=== PATIENT | male | born 1970 | race Caucasian/White ===

== ENCOUNTER 2017-09-16 05:59 | Inpatient (IN) | payer MEDICAID ==
[2017-09-16] VITALS (21 sets, daily range): BP systolic 102–149; BP diastolic 63–98; PULSE 80–104; RESP 16–76; TEMP 98.3–98.5; O2SAT 96–100
[~2017-09-16] VITALS: Ht 177.8 cm; Wt 54.0 kg
[2017-09-16] MEDS ORDERED: PIPERACIL-TAZO 3.375 GM PREMIX 50 ML IV ONE (06:15)
[2017-09-16] MEDS ORDERED: PROPOFOL 1000 MG/100 ML INJ 100 ML IV PRN (06:15)
[2017-09-16] MEDS ORDERED: VANCOMYCIN INJ 1,000 MG in SODIUM CHLOR 0.9% 250 ML INJ 250 ML IV ONE (06:15)
[2017-09-16] MEDS ORDERED: LIDOCAINE HCL 1% PF 30 ML VIAL ONE (06:22)
[2017-09-16] MEDS ORDERED: GABA300C5 PO (06:24)
[2017-09-16] MEDS ORDERED: DILT60TA PO (06:24)
[2017-09-16] MEDS ORDERED: LABE200T2 PO (06:24)
--- NOTE | 2017-09-16 06:45 | RADRPT ---
EXAM DATE/TIME: 09/16/2017 06:17 [facility] COMPARISON: No previous studies available for comparison. INDICATIONS : Post intubation. Patient in respiratory distress. MEDICAL HISTORY : None. SURGICAL HISTORY : Left lobectomy. ENCOUNTER: Initial ACUITY: 1 day PAIN SCORE: Non-responsive. LOCATION: Bilateral chest FINDINGS: A single AP semierect view of the chest was obtained and demonstrates the patient is status post left thoracotomy and lobectomy with volume loss and mediastinal shift to the left. There is patchy opacit y in the left lung which may represent scarring. An endotracheal tube is present with the tip approxi mately 4 cm above the bl[place]. There is mild elevation left hemidiaphragm with blunting of the costoph renic angle chronic. The right lung is hyperinflated with apparent large bleb in the upper lung and atelectatic lung in th e lung base. There is no pleural reflection identified. The heart size is at the upper limits of norm al. CONCLUSION: 1. Hyperinflated right lung with apparent large bleb in the upper lobe. There is no visualized pneumo thorax. 2. Postsurgical change of the left status post lobectomy with volume loss and mediastinal shift. 3. Patchy opacity in the left lung which may represent scarring. Gustavo Álvarez MD on September 16, 2017 at 6:40 Board Certified Radiologist. This report was verified electronically.
[2017-09-16 07:05] LABS: BLOOD, URINE NEG (NEG); COMMENT (UR) CULT NOT INDICATED; CULTURE IF INDICATED CULT NOT INDICATED; GLUCOSE,URINE NEG (NEG); HYALINE CAST, URINE 7 /lpf (RARE); KETONE, URINE NEG (NEG); MUCUS URINE FEW /lpf (OCC); NITRITE,URINE NEG (NEG); SQUAMOUS EPITHELIAL CELL URINE <1 /hpf (0-5); URINE COLOR YELLOW (YELLW/STRAW)
[2017-09-16 07:07] LABS: BLOOD GAS BASE EXCESS 12.2 mmol/L (-2-2); BLOOD GAS CARBOXYHEMOGLOBIN 7.5 % (0-4); BLOOD GAS HCO3 38 mmol/L (22-26); BLOOD GAS METHEMOGLOBIN 0.4 % (0-2); BLOOD GAS O2 HGB SATURATION 92 % (90-100); BLOOD GAS OXYGEN CONTENT 14.7 Vol % (12.0-20.0); BLOOD GAS PCO2 73 mmHg (38-42); BLOOD GAS PO2 407 mmHG (61-120); BLOOD GAS TOTAL HGB 10.6 G/DL (12.0-16.0); CRITICAL VALUE YES
[2017-09-16 07:08] LABS: DRAW SITE RT RADIAL; FIO2 100 %; NUMBER OF ARTERIAL PUNCTURES 2; OXYGEN DEVICE VENTILATOR; STAT YES; ULNAR PULSE PRESENT; VENT SETTINGS AC/16/450/PEEP5
[2017-09-16] MEDS ORDERED: CYCL10TA PO ×2 (07:08→08:32)
[2017-09-16] MEDS ORDERED: CARB25TA9 PO (07:08)
[2017-09-16] MEDS ORDERED: XANA1TAB2 PO (07:08)
[2017-09-16] MEDS ORDERED: HYDR-3580 PO (07:08)
[2017-09-16] MEDS ORDERED: TAMS0.4C4 PO (07:08)
[2017-09-16] MEDS ORDERED: OXYC30TA62 PO (07:08)
[2017-09-16] MEDS ORDERED: ACET10SO3 NEB (07:08)
[2017-09-16] MEDS ORDERED: XIFA550T4 PO (07:08)
[2017-09-16] MEDS ORDERED: RAPA8CAP PO (07:08)
[2017-09-16] MEDS ORDERED: VENTAER INH (07:09)
[2017-09-16] MEDS ORDERED: UMEC1INH INH (07:09)
[2017-09-16] MEDS ORDERED: ADVA230A INH (07:09)
[2017-09-16] MEDS ORDERED: IPRA0.02 NEB (07:11)
[2017-09-16] MEDS ORDERED: ALBU.5I NEB (07:11)
[2017-09-16 07:15] LABS: AUTOMATED NEUTROPHIL # 4.9 TH/MM3 (1.8-7.7); BASOPHIL # 0.2 TH/MM3 (0-0.2); BASOPHIL % 2.9 % (0.0-2.0); EOSINOPHIL # 0.3 TH/MM3 (0-0.4); EOSINOPHIL % 3.4 % (0.0-4.0); HEMO FLAGS DIFF FINAL; LYMPH % 18.1 % (9.0-44.0); LYMPHOCYTE # 1.3 TH/MM3 (1.0-4.8); MEAN CELL VOLUME 87.9 FL (80.0-100.0); MEAN CORPUSCULAR HEMOGLOBIN 27.7 PG (27.0-34.0); MEAN CORPUSCULAR HGB CONC 31.6 % (32.0-36.0); MONO % 8.8 % (0.0-8.0); NEUT % 66.8 % (16.0-70.0); PLATELET COUNT 472 TH/MM3 (150-450); WHITE BLOOD COUNT 7.3 TH/MM3 (4.0-11.0)
[2017-09-16 07:19] LABS: ACETAMINOPHEN LESS THAN 2.0 MCG/ML (10.0-30.0); ALT (GPT) LESS THAN 6 U/L (12-78); AST (GOT) 16 U/L (15-37)
[2017-09-16 07:22] LABS: ALKALINE PHOSPHATASE 67 U/L (45-117); INDIRECT BILIRUBIN 0.1 MG/DL (0.0-0.8); TOTAL BILIRUBIN ADULT 0.2 MG/DL (0.2-1.0)
[2017-09-16 07:52] LABS: ALCOHOL LESS THAN 3 MG/DL (0-5); CREATINE KINASE 79 U/L (39-308)
[2017-09-16] MEDS ORDERED: BACT400T PO (08:32)
[2017-09-16 08:58] LABS: BLOOD UREA NITROGEN 6 MG/DL (7-18); CHLORIDE 95 MEQ/L (98-107); GLOMERULAR FILTRATION RATE 208 ML/MIN (>89); SODIUM (NA) 137 MEQ/L (136-145)
[2017-09-16 08:59] LABS: ANION GAP 6 MEQ/L (5-15); BICARBONATE 36.3 MEQ/L (21.0-32.0)
[2017-09-16] MEDS ORDERED: MISCELLANEOUS NURSING INFORMATION XX SCH (09:30)
[2017-09-16] MEDS ORDERED: ENOXAPARIN SODIUM 40 MG/0.4 ML SYRINGE SQ SCH (09:30)
[2017-09-16] MEDS ORDERED: ACETAMINOPHEN 325 MG TAB PO PRN (09:30)
[2017-09-16] MEDS ORDERED: CHLORHEXIDINE GLUCONATE 2 % 1 PACK (2 CLOTHS) TOP PRN (09:30)
[2017-09-16] MEDS ORDERED: SODIUM CHLORIDE 0.9% FLUSH 10 ML FLUSH IV FLUSH PRN (09:30)
[2017-09-16] MEDS ORDERED: RESP: ALBUTEROL 2.5 MG/3 ML NEB (PRN) INH (09:30)
--- NOTE | 2017-09-16 10:40 | HHI.HP ---
[facility] Service Critical Care Medicine Primary Care Physician Non-Staff Admission Diagnosis resp failure Diagnosis: Chief Complaint: Altered mental status, shortness of breath Travel History International Travel<30 Days: No Contact w/Intl Traveler <30 Da: No Traveled to Known Affected Are: No History of Present Illness 47-year-old male with a medical history significant for advanced COPD on home oxygen 2 L/m, Aspergillus lung infection for which at this time he was on mechanical ventilation and underwent a tracheostomy was seen by he had a left lower lobe lobectomy in 2012 at [facility], recent admission in April [address] [facility] at which time he was on mechanical ventilation underwent tracheostomy and was subsequently discharged on Bactrim by ID. He has followed up with pulmonary physician and had his tracheostomy decannulated 2 weeks ago and saw the infectious disease physician Dr. 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 He has been taking more than his usual dose of Flexeril and is also on chronic narcotics. Patient developed worsening delirium and confusion over the last 1 week which the patient's fianc attributes to taking excessive Flexeril. 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 Patient was brought in today with worsening mental status and shortness of breath. He has also been having some chills for the last 1 week off and on. He was noted be hypoxic on arrival in the ER with significant respiratory distress and was intubated emergently and placed on mechanical ventilation by ER physician. Critical care medicine was contacted and accepted patient for admission to the ICU. When I evaluated the patient in the ER he was sedated, orally intubated on mechanical ventilation. History was obtained by discussion with patient's fianc at the bedside. 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 Advanced COPD on home oxygen 2 L/m for a few years BPH Chronic pain Past Surgical History Bilateral hernia repair, left lower lobe lobectomy for Aspergillus infection in 2012, bowel obstruction/diverticulitis in 2015 for which he underwent surgery Tracheostomy and PEG tube placement in April 2017 both of which have been removed. Reported Medications Bactrim 400/80 one tablet by mouth twice a day Rifaximin 550 mg SQ every 12 hourly Ipratropium nebulizer treatment every 6 hourly Incruse Ellipta inhaler daily Albuterol HFA 2 puffs every 4-6 hourly when necessary Albuterol nebulizer treatments every 6 hourly Silodosin cap 8mg daily Tamsulosin 0.4 mg By mouth daily at bedtime Flexeril 15 mg by mouth 3 times a day, 10 mg by mouth twice a day Labetalol 200 mg by mouth twice a day Diltiazem 60 mg by mouth 4 times a day Hydrocodone/acetaminophen 7.5/325 mg by mouth every 4 hourly when necessary OxyContin 30 mg by mouth every 12 hourly Gabapentin 300 mg by mouth twice a day Xanax 1 mg by mouth every 12 hourly when necessary anxiety Carbidopa/levodopa 25/100 mg by mouth every 8 hourly Advair HFA inhaled twice a day Mucomyst nebulizer treatment 4 times a day Family History Noncontributory at this time Physical Exam Vital Signs Vital Signs Date Time Temp Pulse Resp B/P (MAP) Pulse Ox O2 Delivery O2 Flow Rate FiO2 09/16/17 09:00 97 16 119/78 (92) 100 Auto-Vent 09/16/17 08:30 93 16 115/75 (88) 100 Auto-Vent 09/16/17 08:12 40 09/16/17 08:00 88 16 140/87 (104) 100 Auto-Vent 09/16/17 07:30 92 16 112/75 (87) 100 Auto-Vent 09/16/17 07:00 100 40 09/16/17 07:00 90 16 110/75 (87) 100 Auto-Vent 09/16/17 06:15 100 09/16/17 06:06 96 16 149/98 (115) 100 Ventilator 100 09/16/17 06:06 100 Ventilator 09/16/17 06:00 100 100 09/16/17 05:55 100 15.00 100 Physical Exam HEENT/ Neuro: Sedated, orally intubated, pupils bilaterally constricted reacting to light, Pallor present, no icterus, tongue/ mucosa moist Neck: No JVD. Dressing over previous tracheostomy site noted Chest/Pulm: on mech vent, decreased air entry over left lower lung field, scattered rhonchi, no wheezing or crackles CVS: S1-S2 regular, no murmur GI/abdomen: soft, nontender, bowel sounds sluggish. Healed surgical incision scar, Incisional hernia over midline noted. : penile erection Extremities: warm bilaterally, no edema Laboratory Laboratory Tests Test 09/16/17 06:30 09/16/17 06:45 09/16/17 06:53 Urine Color YELLOW Urine Turbidity CLEAR Urine pH 6.0 Urine Specific [place] 1.009 Urine Protein NEG Urine Glucose (UA) NEG Urine Ketones NEG Urine Occult Blood NEG Urine Nitrite NEG Urine Bilirubin NEG Urine Urobilinogen LESS THAN 2.0 Urine Leukocyte Esterase NEG Urine RBC 1 Urine WBC 1 Urine Squamous Epithelial Cells <1 Urine Hyaline Casts 7 Urine Mucus FEW Microscopic Urinalysis Comment CULT NOT INDICATED Blood Urea Nitrogen 6 Creatinine 0.44 Random Glucose 108 Total Protein 6.4 Albumin 3.4 Calcium Level 8.6 Alkaline Phosphatase 67 Aspartate Amino Transf (AST/SGOT) 16 Alanine Aminotransferase (ALT/SGPT) LESS THAN 6 Total Bilirubin 0.2 Direct Bilirubin 0.1 Sodium Level 137 Potassium Level 4.0 Chloride Level 95 Carbon Dioxide Level 36.3 Anion Gap 6 Estimat Glomerular Filtration Rate 208 Indirect Bilirubin 0.1 Total Creatine Kinase 79 Troponin I LESS THAN 0.02 Lipase 46 Salicylates Level 7.3 Urine Opiates Screen NEG Acetaminophen Level LESS THAN 2.0 Urine Barbiturates Screen NEG Urine Amphetamines Screen NEG Urine Benzodiazepines Screen NEG Urine Cocaine Screen NEG Urine Cannabinoids Screen NEG Ethyl Alcohol Level LESS THAN 3 White Blood Count 7.3 Red Blood Count 4.20 Hemoglobin 11.7 Hematocrit 37.0 Mean Corpuscular Volume 87.9 Mean Corpuscular Hemoglobin 27.7 Mean Corpuscular Hemoglobin Concent 31.6 Red Cell Distribution Width 19.0 Platelet Count 472 Mean Platelet Volume 6.5 Neutrophils (%) (Auto) 66.8 Lymphocytes (%) (Auto) 18.1 Monocytes (%) (Auto) 8.8 Eosinophils (%) (Auto) 3.4 Basophils (%) (Auto) 2.9 Neutrophils # (Auto) 4.9 Lymphocytes # (Auto) 1.3 Monocytes # (Auto) 0.6 Eosinophils # (Auto) 0.3 Basophils # (Auto) 0.2 CBC Comment DIFF FINAL Differential Comment Blood Gas Puncture Site RT RADIAL Blood Gas Patient Temperature 37.0 Blood Gas HCO3 38 Blood Gas Base Excess 12.2 Blood Gas Oxygen Saturation 92 Arterial Blood pH 7.34 Arterial Blood Partial Pressure CO2 73 Arterial Blood Partial Pressure O2 407 Arterial Blood Oxygen Content 14.7 Arterial Blood Carboxyhemoglobin 7.5 Arterial Blood Methemoglobin 0.4 Blood Gas Hemoglobin 10.6 Oxygen Delivery Device VENTILATOR Blood Gas Ventilator Setting AC/16/450/PEEP5 Blood Gas Inspired Oxygen 100 Date/Time Source Procedure Growth Status 09/16/17 06:30 Blood Peripheral Aerobic Blood Culture Pending Received 09/16/17 06:30 Blood Peripheral Anaerobic Blood Culture Pending Received 09/16/17 06:30 Urine Clean Catch Urine Culture Pending Received Result Diagram: 09/16/1745 09/16/17629 Septic Shock Reassessment Heart: Regular rate and rhythm Lungs: Course Skin: Moist Peripheral Pulses: Bounding Right Radial Capillary Refill: Brisk Caprini VTE Risk Assessment Caprini VTE Risk Assessment: Mod/High Risk (score >= 2) Caprini Risk Assessment Model Point Value = 1 Point Value = 2 Point Value = 3 Point Value = 5 Age 41-60 Minor surgery BMI > 25 kg/m2 Swollen legs Varicose veins or History of unexplained or recurrent spontaneous Oral contraceptives or hormone replacement Sepsis (< 1 month) Serious lung disease, including pneumonia (< 1 month) Abnormal pulmonary function Acute myocardial infarction Congestive heart failure (< 1 month) History of inflammatory bowel disease Medical patient at bed rest Age 61-74 Arthroscopic surgery Major open surgery (> 45 min) Laparoscopic surgery (> 45 min) Malignancy Confined to bed (> 72 hours) Immobilizing plaster cast Central venous access Age >= 75 History of VTE Family history of VTE Factor V Leiden Prothrombin [id number] Lupus anticoagulant Anticardiolipin antibodies Elevated serum homocysteine Heparin-induced thrombocytopenia Other congenital or acquired thrombophilia Stroke (< 1 month) Elective arthroplasty Hip, pelvis, or leg fracture Acute spinal cord injury (< 1 month) Prophylaxis Regimen Total Risk Factor Score Risk Level Prophylaxis Regimen 0-1 Low Early ambulation 2 Moderate Order ONE of the following: *Sequential Compression Device (SCD) *Heparin 5000 units SQ BID 3-4 Higher Order ONE of the following medications: *Heparin 5000 units SQ TID *Enoxaparin/Lovenox 40 mg SQ daily (WT < 150 kg, CrCl > 30 mL/min) *Enoxaparin/Lovenox 30 mg SQ daily (WT < 150 kg, CrCl > 10-29 mL/min) *Enoxaparin/Lovenox 30 mg SQ BID (WT < 150 kg, CrCl > 30 mL/min) AND/OR *Sequential Compression Device (SCD) 5 or more Highest Order ONE of the following medications: *Heparin 5000 units SQ TID (Preferred with Epidurals) *Enoxaparin/Lovenox 40 mg SQ daily (WT < 150 kg, CrCl > 30 mL/min) *Enoxaparin/Lovenox 30 mg SQ daily (WT < 150 kg, CrCl > 10-29 mL/min) *Enoxaparin/Lovenox 30 mg SQ BID (WT < 150 kg, CrCl > 30 mL/min) AND *Sequential Compression Device (SCD) Assessment and Plan Assessment and Plan 47-year-old male with: Encephalopathy possibly secondary to narcotics/Flexeril Acute and chronic respiratory failure on mechanical ventilation Advanced COPD with COPD exacerbation Possible pneumonia Possible sepsis Recent nocardia pneumonia Chronic pain History of hypertension Plan: Neuro: Sedation with propofol. Continue oxycodone via OG tube to prevent opioid withdrawal. Hold Flexeril at this time. Follow neuro checks. Ordered stat head CT to rule out ICH. Cardiovascular: IV hydration, watch for hypotension. Will hold off on oral antihypertensives at this time. Labetalol prn. Pulmonary: Continue mechanical ventilation, vent bundle, bronchodilators. Follow up CT chest pulmonary angiogram to evaluate for PE and to further evaluate pulmonary parenchyma. Pulmonary consult requested in view of recent history of no cardiac pneumonia and advanced COPD with previous resection of left lower lobe. Sputum ordered for Gram stain and cultures while in the ER. GI/liver: Insert OG tube and start tube feeds with Glucerna and advanced to goal as tolerated. Laxatives for constipation which is most likely secondary to his chronic narcotic use Renal/: IV hydration, strict intake output, monitor and replete electrolytes, follow BUN creatinine. If patient continues to have persistent penile erection will obtain urology consult for further evaluation. ID: Empiric Linezolid/Zosyn/Zithromax IV to cover for HCAP ID consult requested in view of history of recent nocardia pneumonia. Continue Bactrim twice a day from outpatient. Endocrine: SSI for glycemic control as needed. Heme: Follow CBC Prophylaxis: Pepcid/SCDs/Lovenox Discussed with patient's aliciaanc in detail regarding current clinical status and plan of care and she voiced understanding and was agreeable. Condition critical with acute on chronic respiratory failure, COPD exacerbation , encephalopathy, chronic narcotic dependence Time spent on critical care excluding procedures 90 minutes Kirk Ybarra MD Sep 16, 2017 10:40
[2017-09-16] MEDS: ENOXAPARIN SODIUM 40 MG/0.4 ML SYRINGE SQ SCH ×2 (11:00→11:54)
[2017-09-16] MEDS ORDERED: GLUCAGON 1 MG/ML VIAL OTHER PRN (11:00)
[2017-09-16] MEDS ORDERED: DEXTROSE 50% IN WATER 50 ML VIAL(D50) IV PUSH PRN (11:00)
[2017-09-16] MEDS ORDERED: IOHEXOL 350 MG/ML 10 ML VIAL (for RAD DIAG) IVCONTRAST ONE (11:16)
--- NOTE | 2017-09-16 11:30 | RADRPT ---
EXAM DATE/TIME: 09/16/2017 11:06 [facility] COMPARISON: CHEST SINGLE AP, September 16, 2017, 6:17. INDICATIONS : Hypoxia. IV CONTRAST: 69 cc Omnipaque 350 (iohexol) IV RADIATION DOSE: 23.56 CTDIvol (mGy) MEDICAL HISTORY : Chronic obstructive pulmonary disease. Aspergillus lung infection SURGICAL HISTORY : Tracheostomy, Left lobectomy ENCOUNTER: Initial ACUITY: 1 day PAIN SCALE: Non-responsive LOCATION: chest TECHNIQUE: Volumetric scanning of the chest was performed using a pulmonary embolism protocol MIP images were re constructed. Using automated exposure control and adjustment of the mA and/or kV according to patien t size, radiation dose was kept as low as reasonably achievable to obtain optimal diagnostic quality images. DICOM format image data is available electronically for review and comparison. Follow-up recommendations for detected pulmonary nodules are based at a minimum on nodule size and pa tient risk factors according to Fleischner Society Guidelines. FINDINGS: PULMONARY ARTERIES: No filling defects are seen in the pulmonary arteries through the segmental level. LUNGS: Patient is intubated with ETT in good position. Postsurgical features of prior left upper lobectomy w ith prominent bullous change in the right apex and diffuse centrilobular emphysema. Patchy airspace d isease in the superior segment of the left lower lobe and. Peripheral subpleural nodule measuring 8 m m in the right lower lobe superior segment. Platelike nodular opacity measuring up to 9 mm in the rig ht upper lobe. PLEURAE: Pleural thickening in the right superior hemithorax. No significant pleural effusion. MEDIASTINUM: Significant mediastinal shift to the left. No significant mediastinal adenopathy. The heart is unrema rkable without significant pericardial effusion. MUSCULOSKELETAL: Within normal limits for patient age. MISCELLANEOUS: The visualized upper abdominal organs demonstrate no acute abnormality. CONCLUSION: 1. No evidence for pulmonary artery embolism to the proximal subsegmental level. 2. Postsurgical features of left upper lobectomy with extensive right apical bullous emphysema and di ffuse bilateral centrilobular emphysema. 3. Patchy airspace disease in the superior segment of the left lower lobe which may be post treatment change although developing pneumonia or less likely aspiration cannot be excluded. 4. 8mm right lower lobe subpleural and 9 mm right upper lobe platelike nodules. Consider followup exa mination in approximately 3-6 months per 2017 Fleischner criteria. Maxim Schreiber MD on September 16, 2017 at 11:16 Board Certified Radiologist. This report was verified electronically.
[2017-09-16] MEDS: INSULIN ASPART SUPPLEMENTAL SCALE SQ SCH ×2 (11:54→17:07)
[2017-09-16] MEDS: PROPOFOL 1000 MG/100 ML INJ 100 ML IV PRN ×2 (11:57→19:46)
[2017-09-16] MEDS ORDERED: RESP: ALBUTEROL CONC 2.5 MG/0.5 ML NEB NEB SCH (12:45)
[2017-09-16] MEDS: PIPERACIL-TAZO 4.5 GM PREMIX 100 ML IV SCH ×2 (13:48→17:07)
[2017-09-16] MEDS: AZITHROMYCIN INJ 500 MG in SODIUM CHLOR 0.9% 250 ML INJ 250 ML IV SCH (13:48)
[2017-09-16] MEDS: methylPREDNISolone SOD SUCC 40 MG/1 ML VIAL IV PUSH SCH ×2 (13:59→21:28)
[2017-09-16 14:10] LABS: PROTHROMBIN TIME - PATIENT 10.2 SEC (9.8-11.6)
--- NOTE | 2017-09-16 15:52 | EKG ---
Date Performed: 09/16/2017 Time Performed: 06:05:45 PTAGE: 47 years EKG: Sinus rhythm INCOMPLETE RIGHT BUNDLE BRANCH BLOCK VOLTAGE CRITERIA FOR LVH ABNORMAL ECG NO PREVIOUS TRACING DOCTOR: Jose Alegria Interpretating Date/Time 09/16/2017 15:51:32
--- NOTE | 2017-09-16 16:00 | MB ---
cc: OLYA MILLS MD DATE OF CONSULTATION: 09/16/[address] Kirk Ybarra. REASON FOR CONSULTATION Recent Nocardia pneumonia. History of lobectomy. Respiratory failure. HISTORY OF PRESENT ILLNESS This is a 47-year-old white male who presented to the emergency department with shortness of breath and was intubated. The patient is currently intubated and on the ventilator and therefore information is obtained from the medical record. The patient was hypoxic when he arrived in the emergency department. He is known to have a history of Nocardia pneumonia and was being treated with Bactrim. He was followed up with an infectious disease physician in [place], [place] and reportedly was on maintenance dose of the Bactrim following in hospital treatment for the acute phase. The patient has undergone tracheostomy. The patient has a history of lobectomy of the left lower lobe for Aspergillus lung infection in 2012. This consultation is requested for infection management. Since the patient is on the ventilator information is obtained from the medical record. Medical records as being requested from [facility]. These are not yet available. He is on the ventilator on 40% FIO2 and is unresponsive. PAST MEDICAL HISTORY 1. COPD. 2. Aspergillus pneumonia. 3. Nocardia pneumonia. 4. Benign prostatic hypertrophy. ALLERGIES NO KNOWN DRUG ALLERGIES. MEDICATIONS 1. Azithromycin. 2. Linezolid. 3. Pepcid. 4. Piperacillin/tazobactam. 5. Insulin. 6. Lovenox. SOCIAL HISTORY Unable to obtain. FAMILY HISTORY Unable to obtain. REVIEW OF SYSTEMS Unable to obtain. PHYSICAL EXAMINATION GENERAL: This is a slender male who is in no acute distress. VITAL SIGNS: The patient is afebrile. Temperature 98.8. BP 129/58, heart rate 100. HEENT: Head is atraumatic. Extraocular movements cannot be assessed. Oropharynx intubated. NECK: No adenopathy or swelling. LUNGS: Decreased breath sounds on the right. HEART: Regular, S1-S2. 2/6 systolic murmur. ABDOMEN: Bowel sounds present, soft, no tenderness appreciated. The patient has a large ventral abdominal hernia. RECTAL: Not performed. EXTREMITIES: No clubbing, cyanosis or edema. SKIN: No rash. NEURO: Unable to assess. PSYCHE: Unable to assess. LABORATORY DATA WBC 7.3, platelets 472, hemoglobin 11.7, 66% neutrophils, 18% lymphocytes, 8% monocytes, creatinine 41, estimated GFR 208, sodium 137. AST 16, ALT 6. Lung culture pending. Blood culture pending. Urine culture pending. IMAGING STUDIES Chest x-ray shows hyperinflated right lung with apparent large bleb in the upper lobe, volume loss at the left, also patchy opacity in the left lung which may represent scarring. CT angiogram of the chest showed patchy airspace disease in the superior segment of the left lower lobe which may be posttreatment change. Developing pneumonia or less likely aspiration cannot be excluded, also 8 mm right lower lobe subpleural and 9 mm right upper lobe plate-like nodules. IMPRESSION 1. Acute respiratory failure. 2. Probable pneumonia. The patient has history of Nocardia pulmonary infection which is recently treated and has been continued to be managed with Bactrim. 3. COPD. RECOMMENDATIONS 1. Continue the current broad-spectrum antibiotic treatment with linezolid, piperacillin/tazobactam and azithromycin. 2. Monitor sputum culture. 3. Monitor blood culture. 4. Follow the patient's temperature. Obtain further information on the patient's prior treatment for infection and consider putting him back on maintenance Bactrim. He is due to undergo bronchoscopy and additional cultures should be taken and monitored if that procedure is performed. It is typical to continue treatment for Nocardia pneumonia for a total of 6 months in immunocompetent patient. Thank you for this consultation. The patient's progress will be monitored and further recommendations will be given on followup if necessary. Olya Mills MD FD/JENNIFER /1:43 PM /3:09 PM
[2017-09-16] MEDS: RESP: ALBUTEROL 2.5 MG/IPRATROPIUM 0.5 MG NEB (PRN) INH (16:32)
[2017-09-16] MEDS: RESP: ACETYLCYSTEINE 10% 30 ML NEB NEB SCH (16:33)
[2017-09-16] MEDS: fentaNYL DRIP 250 ML IV PRN (19:46)
--- NOTE | 2017-09-16 20:15 | PD ---
HPI Chief Complaint: Respiratory Distress Time Seen by Provider: 06:06 Travel History International Travel<30 days: No Contact w/Intl Traveler<30days: No Traveled to known affect area: No History of Present Illness HPI Patient is a 47-year-old male with a medical history significant for advanced COPD on home oxygen . 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 He has followed up with pulmonary physician and had his tracheostomy decannulated 2 weeks ago and saw the infectious disease physician Dr. Bloom about a week back. He was continuing his Bactrim twice a day for prevention per patient's fianc. He has been taking more than his usual dose of Flexeril and is also on chronic narcotics. Patient developed worsening delirium and confusion over the last 1 week which the patient's fianc attributes to taking excessive Flexeril. Pt was not taking the pain pill for 1 week as per pts partner. 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 At scene the Intubated pt and gave Ativan $ mg and Etomidate @0mg for sedation. pt arrives vitals stable and intubated. NO ROS or HPI available from pt . sedated intubated [facility] Past Medical History Medical History: Unable to Obtain Arthritis: No Cardiovascular Problems: Yes Cerebrovascular Accident: No Musculoskeletal: No Neurologic: No Respiratory: Yes Migraines: No Seizures: Yes Past Surgical History Surgical History: Unable to Obtain Abdominal Surgery: Yes Cardiac Surgery: No Ear Surgery: No Endocrine Surgery: No Eye Surgery: No Genitourinary Surgery: No Gynecologic Surgery: No Oral Surgery: No Thoracic Surgery: Yes Social History Tobacco Use: Yes Allergies-Medications (Allergen,Severity, Reaction): Coded Allergies: No Known Allergies (Verified Allergy, Unknown, 09/16/17) Reported Meds & Prescriptions Reported Meds & Active Scripts Active Reported Flexeril (Cyclobenzaprine HCl) 10 Mg Tab 15 Mg PO TID Bactrim (Sulfamethoxazole-Trimethoprim) 400-80 Mg Tab 1 Tab PO BID Albuterol Neb (Albuterol Sulfate) 2.5 Mg/0.5 Ml Neb 2.5 Mg NEB Q6HR NEB Note: The Albuterol Sulfate Inhalation Solution is concentrated and must be diluted. Read complete instructions carefully before using. Ipratropium Neb (Ipratropium [place]) 0.5 Mg/2.5 Ml Amp 0.5 Mg NEB Q6HR NEB Ventolin Hfa 18 GM Inh (Albuterol Sulfate) 90 Mcg/Act Aer 2 Puff INH Q4-6H PRN Incruse Ellipta Inh (Umeclidinium [place] Inh) 0.0625 Mg/Act Inh 62.5 Mcg INH DAILY Advair Hfa 12 GM Inh (Fluticasone-Salmeterol 12 GM Inh) 230-21 Mcg/Act Aer 2 Puff INH BID Acetylcysteine Liq/Neb (Acetylcysteine) 100 mg/ml Soln 2 Ml NEB QID Hydrocodone-Acetaminophen 7.5 Mg-325 Mg Tab 1 Tab PO Q4H PRN Oxycontin (Oxycodone HCl) 30 Mg Tab 30 Mg PO Q12HR Flexeril (Cyclobenzaprine HCl) 10 Mg Tab 10 Mg PO BID Xanax (Alprazolam) 1 Mg Tab 1 Mg PO Q12HR PRN Xifaxan (Rifaximin) 550 Mg Tab 550 Mg PO Q12HR Tamsulosin (Tamsulosin HCl) 0.4 Mg Cap 0.4 Mg PO HS Rapaflo (Silodosin) 8 Mg Cap 8 Mg PO DAILY Carbidopa-Levodopa 25-100 Mg Tab 1 Tab PO Q8HR Gabapentin 300 Mg Cap 300 Mg PO BID Labetalol (Labetalol HCl) 200 Mg Tab 200 Mg PO BID Diltiazem (Diltiazem HCl) 60 Mg Tab 60 Mg PO QID Review of Systems ROS Limitations: Intubated, Unresponsive Physical Exam Narrative GENERAL: thin with very thin face and intubated SKIN: Warm and dry. HEAD: Atraumatic. Normocephalic. EYES: closed due to sedation ENT: No nasal bleeding or discharge. Mucous membranes pink and moist. NECK: Trachea midline. No JVD. CARDIOVASCULAR: Regular rate a RESPIRATORY: No breath sounds auscultated in right upper lobe other jackson wheezing , intubated mechanical ventilation lobectomy scar under left ribs GASTROINTESTINAL: Abdomen soft, non-tender, nondistended. Hepatic and splenic margins not palpable. MUSCULOSKELETAL: Extremities without clubbing, cyanosis, or edema. No obvious deformities. NEUROLOGICAL: Unresponsive on ventilator sedation meds PSYCHIATRIC: unresponsive on sedation medication for ventilator Data Data Last Documented VS Vital Signs Date Time Temp Pulse Resp B/P (MAP) Pulse Ox O2 Delivery O2 Flow Rate FiO2 09/16/17 07:30 92 16 112/75 (87) 100 Auto-Vent 09/16/17 07:00 40 09/16/17 05:55 15.00 Orders Orders Vancomycin Inj (Vancomycin Inj) (09/16/17 06:15) Piperacil-Tazo 3.375 Gm Premix (Zosyn 3. (09/16/17 06:15) Propofol 1000 Mg/100 Ml Inj (Diprivan 10 (09/16/17 06:15) Chest, Single Ap (09/16/17 ) Lidocaine Pf 1% Inj (Xylocaine-Mpf 1% In (09/16/17 06:22) Complete Blood Count With Diff (09/16/17 06:49) Ckmb (Isoenzyme) Profile (09/16/17 06:49) Troponin I (09/16/17 06:49) Blood Culture (09/16/17 06:49) Hepatic Functional Panel (09/16/17 06:49) Lipase (09/16/17 06:49) Urinalysis - C+S If Indicated (09/16/17 06:49) Urine Culture (09/16/17 06:49) Drug Screen, Random Urine (09/16/17 06:49) Alcohol (Ethanol) (09/16/17 06:49) Salicylates (Aspirin) (09/16/17 06:49) Tylenol (Acetaminophen) (09/16/17 06:49) Urinary Catheter Management KRYSTA.Q8H (09/16/17 06:50) Restraints Non-Violent KRYSTA.Q3H (09/16/17 06:50) Arterial Blood Gas (Abg) (09/16/17 06:53) Electrocardiogram (09/16/17 ) Admit Order (Ed Use Only) (09/16/17 07:51) Basic Metabolic Panel (Bmp) (09/16/17 06:30) Ct Pulmonary Angiogram (09/16/17 ) Labs Laboratory Tests Test 09/16/17 06:30 12/7/17 06:45 09/16/17 06:53 Urine Color YELLOW Urine Turbidity CLEAR Urine pH 6.0 Urine Specific [place] 1.009 Urine Protein NEG mg/dL Urine Glucose (UA) NEG mg/dL Urine Ketones NEG mg/dL Urine Occult Blood NEG Urine Nitrite NEG Urine Bilirubin NEG Urine Urobilinogen LESS THAN 2.0 MG/DL Urine Leukocyte Esterase NEG Urine RBC 1 /hpf Urine WBC 1 /hpf Urine Squamous Epithelial Cells <1 /hpf Urine Hyaline Casts 7 /lpf Urine Mucus FEW /lpf Microscopic Urinalysis Comment CULT NOT INDICATED Blood Urea Nitrogen 6 MG/DL Creatinine 0.44 MG/DL Random Glucose 108 MG/DL Total Protein 6.4 GM/DL Albumin 3.4 GM/DL Calcium Level 8.6 MG/DL Alkaline Phosphatase 67 U/L Aspartate Amino Transf (AST/SGOT) 16 U/L Alanine Aminotransferase (ALT/SGPT) LESS THAN 6 U/L Total Bilirubin 0.2 MG/DL Direct Bilirubin 0.1 MG/DL Sodium Level 137 MEQ/L Potassium Level 4.0 MEQ/L Chloride Level 95 MEQ/L Carbon Dioxide Level 36.3 MEQ/L Anion Gap 6 MEQ/L Estimat Glomerular Filtration Rate 208 ML/MIN Indirect Bilirubin 0.1 MG/DL Total Creatine Kinase 79 U/L Troponin I LESS THAN 0.02 NG/ML Lipase 46 U/L Salicylates Level 7.3 MG/DL Urine Opiates Screen NEG Acetaminophen Level LESS THAN 2.0 MCG/ML Urine Barbiturates Screen NEG Urine Amphetamines Screen NEG Urine Benzodiazepines Screen NEG Urine Cocaine Screen NEG Urine Cannabinoids Screen NEG Ethyl Alcohol Level LESS THAN 3 MG/DL White Blood Count 7.3 TH/MM3 Red Blood Count 4.20 MIL/MM3 Hemoglobin 11.7 GM/DL Hematocrit 37.0 % Mean Corpuscular Volume 87.9 FL Mean Corpuscular Hemoglobin 27.7 PG Mean Corpuscular Hemoglobin Concent 31.6 % Red Cell Distribution Width 19.0 % Platelet Count 472 TH/MM3 Mean Platelet Volume 6.5 FL Neutrophils (%) (Auto) 66.8 % Lymphocytes (%) (Auto) 18.1 % Monocytes (%) (Auto) 8.8 % Eosinophils (%) (Auto) 3.4 % Basophils (%) (Auto) 2.9 % Neutrophils # (Auto) 4.9 TH/MM3 Lymphocytes # (Auto) 1.3 TH/MM3 Monocytes # (Auto) 0.6 TH/MM3 Eosinophils # (Auto) 0.3 TH/MM3 Basophils # (Auto) 0.2 TH/MM3 CBC Comment DIFF FINAL Differential Comment Blood Gas Puncture Site RT RADIAL Blood Gas Patient Temperature 37.0 Blood Gas HCO3 38 mmol/L Blood Gas Base Excess 12.2 mmol/L Blood Gas Oxygen Saturation 92 % Arterial Blood pH 7.34 Arterial Blood Partial Pressure CO2 73 mmHg Arterial Blood Partial Pressure O2 407 mmHG Arterial Blood Oxygen Content 14.7 Vol % Arterial Blood Carboxyhemoglobin 7.5 % Arterial Blood Methemoglobin 0.4 % Blood Gas Hemoglobin 10.6 G/DL Oxygen Delivery Device VENTILATOR Blood Gas Ventilator Setting AC/16/450/PEEP5 Blood Gas Inspired Oxygen 100 % MDM Medical Decision Making Medical Screen Exam Complete: Yes Emergency Medical Condition: Yes Differential Diagnosis PNA vs PE vs COPD , vs Pneumothorax Narrative Course pt intubated in the field and is stable vitals and O2 sat is 98 on vent. pt given Antibiotics empirically and CXR shows significantly lucent upper lung right lobe. At first I think this is a Pneumothorax and set up for emergent Chest tube as I think this is the cause of his sudden panic and resp failure. But I go to the pax and then on reassessment see that there are faint lung markings and it is a huge bleb of advanced COPD . I there fore admit to ICU after empiric antibiotics for possible COPD exacerbation DUE TO PNA Critical Care Narrative 30 minutes of critical care time Airway eval and re-eval and investigation to cure the cause of sudden RESP failure, and ICU discussion with hazardous materials analyst and the admit to ICU multiple reassessment of oxygenation status and vent adjustments Diagnosis Primary Impression: Respiratory failure Admitting Information Admitting Physician Requests: Admit Condition: Serious Alex Deras MD Sep 16, 2017 20:15
--- NOTE | 2017-09-16 20:24 | RADRPT ---
EXAM DATE/TIME: 09/16/2017 20:16 [facility] COMPARISON: No previous studies available for comparison. INDICATIONS : Altered mental status. Encephalopathy. RADIATION DOSE: 47.25 CTDIvol (mGy) MEDICAL HISTORY : Cardiovascular disease. SURGICAL HISTORY : None. ENCOUNTER: Initial ACUITY: 1 day PAIN SCALE: Non-responsive LOCATION: cranial TECHNIQUE: Multiple contiguous axial images were obtained of the head. Using automated exposure control and adj ustment of the mA and/or kV according to patient size, radiation dose was kept as low as reasonably a chievable to obtain optimal diagnostic quality images. DICOM format image data is available electro nically for review and comparison. FINDINGS: CEREBRUM: The ventricles are normal for age. No evidence of midline shift, mass lesion, hemorrhage or acute in farction. No extra-axial fluid collections are seen. POSTERIOR FOSSA: The cerebellum and brainstem are intact. The 4th ventricle is midline. The cerebellopontine angle i s unremarkable. EXTRACRANIAL: The visualized portion of the orbits is intact. SKULL: The calvaria is intact. No evidence of skull fracture. CONCLUSION: No acute disease. Teo Lopez MD on September 16, 2017 at 20:22 Board Certified Radiologist. This report was verified electronically.
[2017-09-16] MEDS: FAMOTIDINE 20 MG TAB TUBE SCH (21:00)
[2017-09-16] MEDS: LINEZOLID 600 MG PREMIX 300 ML IV SCH (21:28)
[2017-09-16] MEDS: CHLORHEXIDINE 0.12% (ORAL KIT) 15 ML CUP MT SCH (21:28)
[2017-09-16] MEDS: SODIUM CHLORIDE 0.9% FLUSH 10 ML FLUSH IV FLUSH SCH (21:28)
[2017-09-17] VITALS (27 sets, daily range): BP systolic 103–146; BP diastolic 67–96; PULSE 63–90; RESP 20; TEMP 97.7–98.6; O2SAT 93–100
[2017-09-17] MEDS: PIPERACIL-TAZO 4.5 GM PREMIX 100 ML IV SCH ×4 (00:56→20:10)
[2017-09-17] MEDS: PROPOFOL 1000 MG/100 ML INJ 100 ML IV PRN ×5 (00:56→22:33)
[2017-09-17] MEDS: CHLORHEXIDINE GLUCONATE 2 % 1 PACK (2 CLOTHS) TOP SCH (04:00)
[2017-09-17] MEDS: fentaNYL DRIP 250 ML IV PRN ×2 (04:24→15:18)
--- NOTE | 2017-09-17 05:44 | MB ---
cc: KENNEDY ESQUEDA MD, JOHN DATE OF CONSULTATION 09/16/2017 REASON FOR CONSULTATION Respiratory insufficiency and pulmonary infiltrates. HISTORY OF PRESENT ILLNESS This is a 47-year-old white male who has had a prior history of COPD and emphysema on home oxygen at 2 liters, has had multiple medical problems including previous episodes of respiratory failure requiring mechanical ventilation and tracheostomy placement since April of this year. 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 The patient, according to his fiancee, had experienced severe shortness of breath but over the past week or so she has noticed that his mental status was unstable and he was delirious and confused over the past few days and had been on muscle relaxants as well as pain medication. The patient was then brought to the emergency room for evaluation and was hypoxic in the ER, had to be intubated emergently, placed on ventilator support and presently is sedated with propofol and on FIO2 of 40% and rate of 16. Most of the information is obtained from the patient's fiancee. He has not been having any fever. He has had no nausea, vomiting, but has had some decreased appetite. PAST HISTORY 1. Significant for invasive Aspergillus infection of the lung. 2. He has had a left lower lobectomy in 2012. 3. Also was treated for Nocardia pneumonia. 4. Respiratory failure in April of this year. 5. He has COPD. 6. Chronic pain. PAST SURGICAL HISTORY 1. Bilateral inguinal hernia repairs. 2. Tracheostomy. 3. PEG tube placement. 4. Surgery for bowel obstruction and diverticulitis. FAMILY HISTORY Noncontributory HABITS The patient smoked one pack per day for over 25 years and then quit. Alcohol use quite regular, mostly beer. MEDICATION LIST 1. Flexeril 10 mg t.i.d. 1. [place] 7.5/325 one p.r.n. 2. Bactrim one b.i.d. 3. Rifaximin 550 mg b.i.d. subcu. 4. Nebulized albuterol q.i.d. 5. Incruse Ellipta one puff per day. 6. Tamsulosin 0.4 mg at bedtime. 7. Labetalol 200 mg b.i.d. 8. Xanax 1 mg b.i.d. 9. Carbidopa-levodopa 25/100 t.i.d. 10. Advair HFA 2 puffs b.i.d. 11. Gabapentin 300 mg b.i.d. ALLERGIES No drug allergies are listed. SYSTEM REVIEW Unable to obtain. PHYSICAL EXAMINATION GENERAL: This thinly built, middle-aged white male who is intubated orally and poorly responsive and sedated. VITAL SIGNS: Blood pressure 116/60, pulse is 105, respirations 24, temperature 98.2. HEENT: Head normocephalic. Pupils are reactive. Tongue moist. Nasal mucosa edematous. Throat is mildly injected. NECK: No bruits or thyroid enlargement, no lymphadenopathy. CHEST: Decreased breath sounds over the periphery with wheezes bilaterally and occasional crackles scattered over the left chest. Scar of surgery over the left chest. CARDIOVASCULAR: Heart sounds are regular. S1-S2. No murmur. ABDOMEN: Soft, nontender. No organomegaly. Bowel sounds are active. EXTREMITIES: Mild varicosities and minimal edema with diminished reflexes. The patient is sedated. IMPRESSION 1. Acute respiratory failure. 2. 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 3. History of Aspergillus pneumonia and Nocardia. 4. Chronic liver disease. 5. Encephalopathy. PLAN 1. The patient will be maintained on ventilator support. We will reduce the FIO2 to 35%. 2. Follow up chest x-ray to be done. 3. Cultures from tracheal aspirate and blood cultures to be done. 4. Nebulized DuoNeb solution added q.i.d. p.r.n. 5. Antibiotic therapy has been ordered by infectious disease service which we will continue. 6. A bronchoscopy will be scheduled to evaluate the lower airways in this man with immunocompromised status. I will follow the case with you Dr. Esqueda. Thank you for this consultation. MD PIERCE Estrada/MIREILLE /10:41 PM /5:23 AM
[2017-09-17] MEDS: INSULIN ASPART SUPPLEMENTAL SCALE SQ SCH ×4 (05:49→17:58)
[2017-09-17] MEDS: methylPREDNISolone SOD SUCC 40 MG/1 ML VIAL IV PUSH SCH ×3 (05:49→22:32)
--- NOTE | 2017-09-17 06:33 | RADRPT ---
EXAM DATE/TIME: 09/17/2017 05:04 [facility] COMPARISON: CT PULMONARY ANGIOGRAM, September 16, 2017, 11:06. CT BRAIN W/O CONTRAST, September 16, 2017, 20:16. CHEST SINGLE AP, September 16, 2017, 6:17. INDICATIONS : Evaluate for pneumonia MEDICAL HISTORY : Chronic obstructive pulmonary disease. Aspergillus lung infection SURGICAL HISTORY : Left Lobectomy ENCOUNTER: Subsequent ACUITY: 2 days PAIN SCORE: Non-responsive. LOCATION: Bilateral chest FINDINGS: There is bullous emphysema, volume loss in left hemithorax, elevation of left hemidiaphragm and blunt ing of the left lateral costophrenic angle. Endotracheal tube in satisfactory position appears cercla ge wires overlie the left upper ribs. There is no consolidation. CONCLUSION: Stable appearance of the chest. Emigdio Lee MD on September 17, 2017 at 6:30 Board Certified Radiologist. This report was verified electronically.
[2017-09-17 06:49] LABS: AUTOMATED NEUTROPHIL # 7.2 TH/MM3 (1.8-7.7); BASOPHIL % 0.2 % (0.0-2.0); HEMATOCRIT 35.3 % (39.0-51.0); HEMO FLAGS DIFF FINAL; LYMPH % 8.9 % (9.0-44.0); LYMPHOCYTE # 0.8 TH/MM3 (1.0-4.8); MEAN CELL VOLUME 85.7 FL (80.0-100.0); MEAN CORPUSCULAR HEMOGLOBIN 27.4 PG (27.0-34.0); MONO % 8.7 % (0.0-8.0); NEUT % 82.2 % (16.0-70.0); PLATELET COUNT 465 TH/MM3 (150-450); RED BLOOD COUNT 4.12 MIL/MM3 (4.50-5.90); RED CELL DISTRIBUTION WIDTH 19.1 % (11.6-17.2); WHITE BLOOD COUNT 8.7 TH/MM3 (4.0-11.0)
[2017-09-17 06:57] LABS: APTT (PATIENT) 24.4 SEC (24.3-30.1); PROTHROMBIN TIME - PATIENT 10.3 SEC (9.8-11.6)
[2017-09-17 07:14] LABS: ANION GAP 4 MEQ/L (5-15); BICARBONATE 33.9 MEQ/L (21.0-32.0); BLOOD UREA NITROGEN 12 MG/DL (7-18); CHLORIDE 96 MEQ/L (98-107); GLOMERULAR FILTRATION RATE 193 ML/MIN (>89); POTASSIUM 3.5 MEQ/L (3.5-5.1); SODIUM (NA) 134 MEQ/L (136-145)
[2017-09-17 07:15] LABS: AST (GOT) 10 U/L (15-37)
[2017-09-17 07:18] LABS: ALKALINE PHOSPHATASE 58 U/L (45-117); ALT (GPT) 10 U/L (12-78); TOTAL BILIRUBIN ADULT 0.2 MG/DL (0.2-1.0)
[2017-09-17] MEDS: RESP: ACETYLCYSTEINE 10% 30 ML NEB NEB SCH ×3 (07:52→15:04)
[2017-09-17] MEDS: RESP: ALBUTEROL 2.5 MG/IPRATROPIUM 0.5 MG NEB (PRN) INH ×3 (07:52→21:50)
--- NOTE | 2017-09-17 08:29 | HHI.CCPN ---
Subjective Remarks/Hospital Course 47-year-old male with a medical history significant for advanced COPD on home oxygen 2 L/m, Aspergillus lung infection for which at this time he was on mechanical ventilation and underwent a tracheostomy was seen by he had a left lower lobe lobectomy in 2012 at [facility], recent admission in April 2017 for nocardia pneumonia at [facility] at which time he was on mechanical ventilation underwent tracheostomy and was subsequently discharged on Bactrim by ID. He has followed up with pulmonary physician and had his tracheostomy decannulated 2 weeks ago and saw the infectious disease physician Dr. 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 He has been taking more than his usual dose of Flexeril and is also on chronic narcotics. Patient developed worsening delirium and confusion over the last 1 week which the patient's fianc attributes to taking excessive Flexeril. 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 Patient was brought in today with worsening mental status and shortness of breath. He has also been having some chills for the last 1 week off and on. He was noted be hypoxic on arrival in the ER with significant respiratory distress and was intubated emergently and placed on mechanical ventilation by ER physician. Critical care medicine was contacted and accepted patient for admission to the ICU. When I evaluated the patient in the ER he was sedated, orally intubated on mechanical ventilation. History was obtained by discussion with patient's fianc at the bedside. 09/17 Patient is sedated with Diprivan , fentanyl and intubated. Afebrile. For bronch today by pulmonary. Objective Vital Signs Date Time Temp Pulse Resp B/P (MAP) Pulse Ox O2 Delivery O2 Flow Rate FiO2 09/17/17 07:52 94 40 09/17/17 06:00 71 09/17/17 04:00 98.8 20 112/70 (84) 09/16/17 10:57 Auto-Vent 09/16/17 05:55 15.00 Intake and Output 09/17/17 09/17/17 09/18/17 08:00 16:00 00:00 Intake Total 0 ml Output Total 450 ml Balance -450 ml Result Diagram: 09/17/17 0551 09/17/17 0557 Other Results Laboratory Tests Test 09/16/17 11:33 09/16/17 13:05 09/17/17 05:51 09/17/17 05:57 Nasal Screen MRSA (PCR) MRSA NOT DETECTED Prothrombin Time 10.2 SEC 10.3 SEC Prothromb Time International Ratio 1.0 RATIO 1.0 RATIO White Blood Count 8.7 TH/MM3 Red Blood Count 4.12 MIL/MM3 Hemoglobin 11.3 GM/DL Hematocrit 35.3 % Mean Corpuscular Volume 85.7 FL Mean Corpuscular Hemoglobin 27.4 PG Mean Corpuscular Hemoglobin Concent 32.0 % Red Cell Distribution Width 19.1 % Platelet Count 465 TH/MM3 Mean Platelet Volume 6.8 FL Neutrophils (%) (Auto) 82.2 % Lymphocytes (%) (Auto) 8.9 % Monocytes (%) (Auto) 8.7 % Eosinophils (%) (Auto) 0.0 % Basophils (%) (Auto) 0.2 % Neutrophils # (Auto) 7.2 TH/MM3 Lymphocytes # (Auto) 0.8 TH/MM3 Monocytes # (Auto) 0.8 TH/MM3 Eosinophils # (Auto) 0.0 TH/MM3 Basophils # (Auto) 0.0 TH/MM3 CBC Comment DIFF FINAL Differential Comment Activated Partial Thromboplast Time 24.4 SEC Blood Urea Nitrogen 12 MG/DL Creatinine 0.47 MG/DL Random Glucose 108 MG/DL Total Protein 5.9 GM/DL Albumin 3.0 GM/DL Calcium Level 8.5 MG/DL Alkaline Phosphatase 58 U/L Aspartate Amino Transf (AST/SGOT) 10 U/L Alanine Aminotransferase (ALT/SGPT) 10 U/L Total Bilirubin 0.2 MG/DL Sodium Level 134 MEQ/L Potassium Level 3.5 MEQ/L Chloride Level 96 MEQ/L Carbon Dioxide Level 33.9 MEQ/L Anion Gap 4 MEQ/L Estimat Glomerular Filtration Rate 193 ML/MIN Imaging Last Impressions Chest X-Ray 09/17/17 0600 Signed Impressions: Service Date/Time: Sunday, September 17, 2017 05:04 - CONCLUSION: Stable appearance of the chest. Emigdio Lee MD Head CT 09/16/17 0000 Signed Impressions: Service Date/Time: September 20:16 - CONCLUSION: No acute disease. Teo Lopez MD CT Angiography 09/16/17 0000 Signed Impressions: Service Date/Time: September 11:06 - CONCLUSION: 1. No evidence for pulmonary artery embolism to the proximal subsegmental level. 2. Postsurgical features of left upper lobectomy with extensive right apical bullous emphysema and diffuse bilateral centrilobular emphysema. 3. Patchy airspace disease in the superior segment of the left lower lobe which may be post treatment change although developing pneumonia or less likely aspiration cannot be excluded. 4. 8mm right lower lobe subpleural and 9 mm right upper lobe platelike nodules. Consider followup examination in approximately 3-6 months per 2017 Fleischner criteria. Maxim Schreiber MD Objective Remarks GENERAL: PAtient is 47 yo intubated and sedated SKIN: Warm and dry. HEAD: Normocephalic. EYES: No scleral icterus. No injection or drainage. NECK: Supple, trachea midline. No JVD or lymphadenopathy. CARDIOVASCULAR: Regular rate and rhythm without murmurs, gallops, or rubs. RESPIRATORY: Breath sounds equal bilaterally. No accessory muscle use. Orally intubated GASTROINTESTINAL: Abdomen soft, non-tender, nondistended. MUSCULOSKELETAL: No cyanosis, or edema. Neuro: sedated, intubated A/P Assessment and Plan 47-year-old male with: Encephalopathy possibly secondary to narcotics/Flexeril Acute and chronic respiratory failure on mechanical ventilation Advanced COPD with COPD exacerbation Possible pneumonia Possible sepsis Recent nocardia pneumonia Chronic pain History of hypertension Plan: Neuro: Sedation with propofol/ Fentanyl infusion. Continue oxycodone via OG tube to prevent opioid withdrawal. Follow neuro checks. Daily sedation vacation. CT brain 09/16 No acute disease CV: Monitor HR and BP keep MAP>65mmHg Pulm: Continue with vent support keep sat >92% Check ABG bronchodilators, vent bundle, on solumederol 40mg Q8 Pulm is following- Dr. Richardson. For bronch today GI/liver: NPO for bronch today. Place on D5NS@75ml/hr Renal/: Monitor renal function, electrolytes replacement per protocol. ID: Continue abx(Linezolid/Zosyn/Zithromax ) Continue Bactrim twice a day from outpatient for Nocardia prophylaxis. ID consulted. Pancultured 12/7 ( Blood, Sputum, urine) Strep pneumonia nad Legionella urinary Ag pending. Nasal washing negative for Flu. Endocrine: SSI for glycemic control as needed. Heme: Monitor CBC Endo: SI to maintain euglycemia Prophylaxis: Pepcid/SCDs/Lovenox Level 3 Isis Parikh MD Sep 17, 2017 08:29
[2017-09-17] MEDS ORDERED: POTASSIUM PHOSPHATE INJ 30 MMOL in SODIUM CHLOR 0.9% 250 ML INJ 250 ML IV PRN (08:30)
[2017-09-17] MEDS ORDERED: MAGNESIUM SULFATE INJ 4 GM in SODIUM CHLORIDE 0.9% INJ 92 ML IV PRN (08:30)
[2017-09-17] MEDS ORDERED: MAGNESIUM SULFATE INJ 2 GM in SODIUM CHLORIDE 0.9% INJ 96 ML IV PRN (08:30)
[2017-09-17] MEDS ORDERED: SODIUM PHOSPHATE INJ 30 MMOL in SODIUM CHLOR 0.9% 250 ML INJ 240 ML IV PRN (08:30)
[2017-09-17] MEDS ORDERED: POTASSIUM PHOSPHATE MONOBASIC 500 MG TAB PO PRN (08:30)
[2017-09-17] MEDS ORDERED: POTASSIUM CHLOR 20 MEQ PREMIX 100 ML IV PRN ×2 (08:30)
[2017-09-17] MEDS ORDERED: MAGNESIUM OXIDE 400 MG TAB PO PRN (08:30)
[2017-09-17] MEDS ORDERED: POTASSIUM CHLOR 40 MEQ PREMIX 100 ML IV PRN ×2 (08:30)
[2017-09-17] MEDS ORDERED: POTASSIUM PHOSPHATE MONOBASIC 500 MG TAB PO/TUBE PRN (08:30)
[2017-09-17] MEDS: FAMOTIDINE 20 MG TAB TUBE SCH ×2 (09:00→20:11)
[2017-09-17 09:12] LABS: BLOOD GAS BASE EXCESS 9.9 mmol/L (-2-2); BLOOD GAS CARBOXYHEMOGLOBIN 1.1 % (0-4); BLOOD GAS HCO3 34 mmol/L (22-26); BLOOD GAS METHEMOGLOBIN 1.2 % (0-2); BLOOD GAS O2 HGB SATURATION 94 % (90-100); BLOOD GAS OXYGEN CONTENT 15.3 Vol % (12.0-20.0); BLOOD GAS PCO2 49 mmHg (38-42); BLOOD GAS PO2 78 mmHg (61-120); BLOOD GAS TOTAL HGB 11.6 G/DL (12.0-16.0); CRITICAL VALUE NO; OXYGEN DEVICE VENTILATOR; TEMP CORR TO 98.6
[2017-09-17 09:13] LABS: DRAW SITE RT RADIAL; FIO2 40 %; NUMBER OF ARTERIAL PUNCTURES 1; STAT NO; ULNAR PULSE PRESENT
[2017-09-17] MEDS: LINEZOLID 600 MG PREMIX 300 ML IV SCH ×2 (09:15→21:30)
[2017-09-17] MEDS: DEXT 5%-NACL 0.9% 1000 ML INJ 1,000 ML IV SCH (09:15)
[2017-09-17] MEDS: SODIUM CHLORIDE 0.9% FLUSH 10 ML FLUSH IV FLUSH SCH ×2 (09:16→20:11)
[2017-09-17] MEDS: CHLORHEXIDINE 0.12% (ORAL KIT) 15 ML CUP MT SCH ×2 (09:16→20:10)
[2017-09-17] MEDS: ENOXAPARIN SODIUM 40 MG/0.4 ML SYRINGE SQ SCH (11:00)
[2017-09-17] MEDS ORDERED: MIDAZOLAM 100 MG/NS 100 ML DRIP Premix IV PRN (11:15)
--- NOTE | 2017-09-17 11:31 | HHI.IDPN ---
Note Infectious Disease Note Patient about to have bronchoscopy. Afebrile. Presented to the emergency department with shortness of breath and was intubated. PAST MEDICAL HISTORY 1. COPD. 2. Aspergillus pneumonia. 3. Nocardia pneumonia. 4. Benign prostatic hypertrophy. 5. Left lower lobectomy. ALLERGIES NO KNOWN DRUG ALLERGIES. ANTIBIOTICS 1. Azithromycin. 2. Linezolid. 3. Piperacillin/tazobactam. 5. Insulin. 6. Lovenox. OBJECTIVE: Vital Signs Date Time Temp Pulse Resp B/P (MAP) Pulse Ox O2 Delivery O2 Flow Rate FiO2 09/17/17 10:23 94 40 09/17/17 07:52 94 40 09/17/17 06:00 71 09/17/17 04:43 97 40 09/17/17 04:00 75 09/17/17 04:00 98.8 75 20 112/70 (84) 97 09/17/17 02:15 96 40 09/17/17 02:00 74 09/17/17 00:00 98.6 78 20 121/74 (90) 97 09/17/17 00:00 78 09/16/17 22:00 80 09/16/17 21:45 96 40 09/16/17 20:05 99 100 09/16/17 20:00 96 09/16/17 20:00 98.5 96 76 112/74 (87) 96 09/16/17 18:00 100 09/16/17 16:33 97 40 09/16/17 16:00 98.2 89 20 108/73 (85) 98 09/16/17 16:00 89 09/16/17 15:00 98.2 88 20 104/70 (81) 99 09/16/17 14:00 89 09/16/17 12:00 98.3 89 20 118/79 (92) 99 09/16/17 12:00 101 09/16/17 11:45 98.4 101 17 129/82 (98) 100 09/16/17 11:30 100 40 Laboratory Tests Test 09/16/17 11:33 09/16/17 13:05 09/17/17 05:51 09/17/17 05:57 Nasal Screen MRSA (PCR) MRSA NOT DETECTED Prothrombin Time 10.2 SEC 10.3 SEC Prothromb Time International Ratio 1.0 RATIO 1.0 RATIO White Blood Count 8.7 TH/MM3 Red Blood Count 4.12 MIL/MM3 Hemoglobin 11.3 GM/DL Hematocrit 35.3 % Mean Corpuscular Volume 85.7 FL Mean Corpuscular Hemoglobin 27.4 PG Mean Corpuscular Hemoglobin Concent 32.0 % Red Cell Distribution Width 19.1 % Platelet Count 465 TH/MM3 Mean Platelet Volume 6.8 FL Neutrophils (%) (Auto) 82.2 % Lymphocytes (%) (Auto) 8.9 % Monocytes (%) (Auto) 8.7 % Eosinophils (%) (Auto) 0.0 % Basophils (%) (Auto) 0.2 % Neutrophils # (Auto) 7.2 TH/MM3 Lymphocytes # (Auto) 0.8 TH/MM3 Monocytes # (Auto) 0.8 TH/MM3 Eosinophils # (Auto) 0.0 TH/MM3 Basophils # (Auto) 0.0 TH/MM3 CBC Comment DIFF FINAL Differential Comment Activated Partial Thromboplast Time 24.4 SEC Blood Urea Nitrogen 12 MG/DL Creatinine 0.47 MG/DL Random Glucose 108 MG/DL Total Protein 5.9 GM/DL Albumin 3.0 GM/DL Calcium Level 8.5 MG/DL Phosphorus Level 2.9 MG/DL Alkaline Phosphatase 58 U/L Aspartate Amino Transf (AST/SGOT) 10 U/L Alanine Aminotransferase (ALT/SGPT) 10 U/L Total Bilirubin 0.2 MG/DL Sodium Level 134 MEQ/L Potassium Level 3.5 MEQ/L Chloride Level 96 MEQ/L Carbon Dioxide Level 33.9 MEQ/L Anion Gap 4 MEQ/L Estimat Glomerular Filtration Rate 193 ML/MIN Test 09/17/17 09:07 Blood Gas Puncture Site RT RADIAL Blood Gas Patient Temperature 98.6 Blood Gas HCO3 34 mmol/L Blood Gas Base Excess 9.9 mmol/L Blood Gas Oxygen Saturation 94 % Arterial Blood pH 7.46 Arterial Blood Partial Pressure CO2 49 mmHg Arterial Blood Partial Pressure O2 78 mmHg Arterial Blood Oxygen Content 15.3 Vol % Arterial Blood Carboxyhemoglobin 1.1 % Arterial Blood Methemoglobin 1.2 % Blood Gas Hemoglobin 11.6 G/DL Oxygen Delivery Device VENTILATOR Blood Gas Ventilator Setting Blood Gas Inspired Oxygen 40 % IMAGING: Chest X-Ray 09/17/17 0600 Signed Impressions: Service Date/Time: Sunday, September 17, 2017 05:04 - CONCLUSION: Stable appearance of the chest. Emigdio Lee MD Head CT 09/16/17 0000 Signed Impressions: Service Date/Time: September 20:16 - CONCLUSION: No acute disease. Teo Lopez MD CT Angiography 09/16/17 0000 Signed Impressions: Service Date/Time: September 11:06 - CONCLUSION: 1. No evidence for pulmonary artery embolism to the proximal subsegmental level. 2. Postsurgical features of left upper lobectomy with extensive right apical bullous emphysema and diffuse bilateral centrilobular emphysema. 3. Patchy airspace disease in the superior segment of the left lower lobe which may be post treatment change although developing pneumonia or less likely aspiration cannot be excluded. 4. 8mm right lower lobe subpleural and 9 mm right upper lobe platelike nodules. Consider followup examination in approximately 3-6 months per 2017 Fleischner criteria. Maxim Schreiber MD PHYSICAL EXAMINATION GENERAL: On the vent. No acute distress. HEENT: Head is atraumatic. Extraocular movements cannot be assessed. Oropharynx intubated. NECK: No adenopathy or swelling. LUNGS: Decreased breath sounds on the right. HEART: Regular, S1-S2. 2/6 systolic murmur. ABDOMEN: Bowel sounds present, soft, no tenderness appreciated. The patient has a large ventral abdominal hernia. EXTREMITIES: No clubbing, cyanosis or edema. SKIN: No rash. NEURO: Unable to assess. PSYCH: Unable to assess. IMPRESSION 1. Acute respiratory failure. 2. Probable pneumonia. The patient has history of Nocardia pulmonary infection which is recently treated and has been continued to be managed with maintenance Bactrim. 3. COPD. RECOMMENDATIONS 1. Continue linezolid. 2. Continue piperacillin/tazobactam. 3. Continue Azithromycin. 4. Monitor cultures. bronch, sputum, Blood and Bronch specimen. (Micro alerted to look for nocardia). 5. Monitor temperature. Jesus Vu MD Sep 17, 2017 11:31
--- NOTE | 2017-09-17 14:18 | MP ---
cc: TRISH RICHARDSON DATE OF SURGERY: 09/17/2017 PROCEDURE: Fiberoptic bronchoscopy with brushings and washings, lavage. PREOPERATIVE DIAGNOSIS Bilateral pulmonary infiltrates history of nocardiosis ANESTHESIA The patient was on IV propofol, fentanyl and Versed on ventilator support intubated. SURGEONn Dr. Trish Richardson PROCEDURE AND FINDINGS The patient was already intubated with size 7.5 endotracheal tube the Olympus IT 180 bronchoscope was visualized, bronchoscope was advanced while the endotracheal tube into the trachea. Trachea and blaine appeared normal. Scope was then advanced into the right mainstem and right upper lobe segmental bronchi. These rhonchi demonstrated thick mucoid secretions with mild endobronchitis. The secretions were suctioned out. No endobronchial lesions were seen. Next, the scope was advanced over the right middle lobe segmental bronchi. These rhonchi demonstrated moderate Endo bronchitis with mucoid secretions. These were suctioned out and the underlying bronchi demonstrated mild erythema. There are no endobronchial masses seen. Next the right lower lobe segmental bronchi visualized which demonstrated mucosal edema with moderate Endo bronchitis and thick mucoid secretions and mucous plugs. These were suctioned out. Saline washings and lavage were done. No endobronchial masses seen. The scope was then advanced into the left mainstem the left upper lobe segmental bronchi. These bronchi demonstrated mucoid secretions and moderate Endo bronchitis with mucous plugs. These were suctioned out. Saline washings and lavage were done until clear. No endobronchial lesions seen. Next the left lower lobe segmental bronchi visualized which demonstrated mucosal edema with ridging and thick mucoid secretions, the brushings were done from this area and saline washings were also done with lavage until clear. The procedure was then terminated. There no endobronchial masses seen on either side. MD PIERCE Estrada/oksana /11:56 AM /2:08 PM
[2017-09-17] MEDS: POTASSIUM CHLORIDE 25 MEQ EFFERVESCENT TAB PO PRN (14:25)
[2017-09-17] MEDS: AZITHROMYCIN INJ 500 MG in SODIUM CHLOR 0.9% 250 ML INJ 250 ML IV SCH (14:25)
[2017-09-18] VITALS (18 sets, daily range): BP systolic 139–192; BP diastolic 84–106; PULSE 60–84; RESP 20; TEMP 97.3–98.6; O2SAT 93–100
[2017-09-18] MEDS: INSULIN ASPART SUPPLEMENTAL SCALE SQ SCH ×4 (00:09→17:41)
[2017-09-18] MEDS: fentaNYL DRIP 250 ML IV PRN ×2 (00:43→08:34)
[2017-09-18] MEDS: RESP: ALBUTEROL 2.5 MG/IPRATROPIUM 0.5 MG NEB (PRN) INH (00:44)
[2017-09-18] MEDS: RESP: ACETYLCYSTEINE 10% 30 ML NEB NEB SCH ×3 (00:44→20:19)
[2017-09-18] MEDS: PIPERACIL-TAZO 4.5 GM PREMIX 100 ML IV SCH ×4 (02:11→17:41)
[2017-09-18] MEDS: PROPOFOL 1000 MG/100 ML INJ 100 ML IV PRN ×3 (03:18→14:26)
[2017-09-18] MEDS: CHLORHEXIDINE GLUCONATE 2 % 1 PACK (2 CLOTHS) TOP SCH (04:00)
[2017-09-18] MEDS: DEXT 5%-NACL 0.9% 1000 ML INJ 1,000 ML IV SCH (05:36)
[2017-09-18] MEDS: methylPREDNISolone SOD SUCC 40 MG/1 ML VIAL IV PUSH SCH ×3 (06:46→19:55)
[2017-09-18 07:16] LABS: AUTOMATED NEUTROPHIL # 6.6 TH/MM3 (1.8-7.7); BASOPHIL % 0.2 % (0.0-2.0); HEMATOCRIT 36.4 % (39.0-51.0); HEMO FLAGS DIFF FINAL; LYMPH % 7.6 % (9.0-44.0); LYMPHOCYTE # 0.6 TH/MM3 (1.0-4.8); MEAN CELL VOLUME 85.6 FL (80.0-100.0); MEAN CORPUSCULAR HEMOGLOBIN 27.4 PG (27.0-34.0); MONO % 8.6 % (0.0-8.0); NEUT % 83.6 % (16.0-70.0); PLATELET COUNT 455 TH/MM3 (150-450); RED BLOOD COUNT 4.26 MIL/MM3 (4.50-5.90); RED CELL DISTRIBUTION WIDTH 18.7 % (11.6-17.2); WHITE BLOOD COUNT 7.9 TH/MM3 (4.0-11.0)
[2017-09-18 07:49] LABS: BICARBONATE 31.4 MEQ/L (21.0-32.0); MAGNESIUM 1.9 MG/DL (1.5-2.5); POTASSIUM 3.9 MEQ/L (3.5-5.1)
[2017-09-18] MEDS: CHLORHEXIDINE 0.12% (ORAL KIT) 15 ML CUP MT SCH ×2 (08:00→19:56)
[2017-09-18] MEDS: FAMOTIDINE 20 MG TAB TUBE SCH ×2 (08:34→19:55)
--- NOTE | 2017-09-18 08:34 | HHI.CCPN ---
Subjective Remarks/Hospital Course 47-year-old male with a medical history significant for advanced COPD on home oxygen 2 L/m, Aspergillus lung infection for which at this time he was on mechanical ventilation and underwent a tracheostomy was seen by he had a left lower lobe lobectomy in 2012 at [facility], recent admission in April [address] [facility] at which time he was on mechanical ventilation underwent tracheostomy and was subsequently discharged on Bactrim by ID. He has followed up with pulmonary physician and had his tracheostomy decannulated 2 weeks ago and saw the infectious disease physician Dr. 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 He has been taking more than his usual dose of Flexeril and is also on chronic narcotics. Patient developed worsening delirium and confusion over the last 1 week which the patient's fianc attributes to taking excessive Flexeril. 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 Patient was brought in today with worsening mental status and shortness of breath. He has also been having some chills for the last 1 week off and on. He was noted be hypoxic on arrival in the ER with significant respiratory distress and was intubated emergently and placed on mechanical ventilation by ER physician. Critical care medicine was contacted and accepted patient for admission to the ICU. When I evaluated the patient in the ER he was sedated, orally intubated on mechanical ventilation. History was obtained by discussion with patient's fianc at the bedside. 09/17 Patient is sedated with Diprivan , fentanyl and intubated. Afebrile. For bronch today by pulmonary. 09/18 No events overnight. Sedated with Diprivan and Fentanyl drip. s/p Bronch yesterday which shoed mucoid secretions/mucous plugs. Afebrile. Objective Vital Signs Date Time Temp Pulse Resp B/P (MAP) Pulse Ox O2 Delivery O2 Flow Rate FiO2 09/18/17 06:00 64 09/18/17 05:10 98 40 09/18/17 04:00 97.9 20 155/88 (110) 09/16/17 10:57 Auto-Vent 09/16/17 05:55 15.00 Intake and Output 12/909/18/17 09/19/17 08:00 16:00 00:00 Output Total 1800 ml Balance -1800 ml Result Diagram: 09/18/17 0538 09/18/17 0538 Other Results Laboratory Tests Test 09/17/17 09:07 09/18/17 05:38 Blood Gas Puncture Site RT RADIAL Blood Gas Patient Temperature 98.6 Blood Gas HCO3 34 mmol/L Blood Gas Base Excess 9.9 mmol/L Blood Gas Oxygen Saturation 94 % Arterial Blood pH 7.46 Arterial Blood Partial Pressure CO2 49 mmHg Arterial Blood Partial Pressure O2 78 mmHg Arterial Blood Oxygen Content 15.3 Vol % Arterial Blood Carboxyhemoglobin 1.1 % Arterial Blood Methemoglobin 1.2 % Blood Gas Hemoglobin 11.6 G/DL Oxygen Delivery Device VENTILATOR Blood Gas Ventilator Setting Blood Gas Inspired Oxygen 40 % White Blood Count 7.9 TH/MM3 Red Blood Count 4.26 MIL/MM3 Hemoglobin 11.7 GM/DL Hematocrit 36.4 % Mean Corpuscular Volume 85.6 FL Mean Corpuscular Hemoglobin 27.4 PG Mean Corpuscular Hemoglobin Concent 32.0 % Red Cell Distribution Width 18.7 % Platelet Count 455 TH/MM3 Mean Platelet Volume 6.7 FL Neutrophils (%) (Auto) 83.6 % Lymphocytes (%) (Auto) 7.6 % Monocytes (%) (Auto) 8.6 % Eosinophils (%) (Auto) 0.0 % Basophils (%) (Auto) 0.2 % Neutrophils # (Auto) 6.6 TH/MM3 Lymphocytes # (Auto) 0.6 TH/MM3 Monocytes # (Auto) 0.7 TH/MM3 Eosinophils # (Auto) 0.0 TH/MM3 Basophils # (Auto) 0.0 TH/MM3 CBC Comment DIFF FINAL Differential Comment Blood Urea Nitrogen 8 MG/DL Creatinine 0.43 MG/DL Random Glucose 140 MG/DL Calcium Level 8.3 MG/DL Phosphorus Level 2.0 MG/DL Magnesium Level 1.9 MG/DL Sodium Level 141 MEQ/L Potassium Level 3.9 MEQ/L Chloride Level 104 MEQ/L Carbon Dioxide Level 31.4 MEQ/L Anion Gap 6 MEQ/L Estimat Glomerular Filtration Rate 214 ML/MIN Imaging Last Impressions Chest X-Ray 09/17/17 0600 Signed Impressions: Service Date/Time: Sunday, September 17, 2017 05:04 - CONCLUSION: Stable appearance of the chest. Emigdio Lee MD Head CT 09/16/17 0000 Signed Impressions: Service Date/Time: September 20:16 - CONCLUSION: No acute disease. Teo Lopez MD CT Angiography 09/16/17 0000 Signed Impressions: Service Date/Time: September 11:06 - CONCLUSION: 1. No evidence for pulmonary artery embolism to the proximal subsegmental level. 2. Postsurgical features of left upper lobectomy with extensive right apical bullous emphysema and diffuse bilateral centrilobular emphysema. 3. Patchy airspace disease in the superior segment of the left lower lobe which may be post treatment change although developing pneumonia or less likely aspiration cannot be excluded. 4. 8mm right lower lobe subpleural and 9 mm right upper lobe platelike nodules. Consider followup examination in approximately 3-6 months per 2017 Fleischner criteria. Maxim Schreiber MD Objective Remarks GENERAL: PAtient is 47 yo intubated and sedated SKIN: Warm and dry. HEAD: Normocephalic. EYES: No scleral icterus. No injection or drainage. NECK: Supple, trachea midline. No JVD or lymphadenopathy. CARDIOVASCULAR: Regular rate and rhythm without murmurs, gallops, or rubs. RESPIRATORY: Breath sounds equal bilaterally. No accessory muscle use. Orally intubated GASTROINTESTINAL: Abdomen soft, non-tender, nondistended. MUSCULOSKELETAL: No cyanosis, or edema. Neuro: sedated, intubated A/P Assessment and Plan 47-year-old male with: Encephalopathy possibly secondary to narcotics/Flexeril Acute and chronic respiratory failure on mechanical ventilation Advanced COPD with COPD exacerbation Possible pneumonia Possible sepsis Recent nocardia pneumonia Chronic pain History of hypertension Plan: Neuro: Sedation with propofol/ Fentanyl infusion. Continue oxycodone via OG tube to prevent opioid withdrawal. Follow neuro checks. Daily sedation vacation. CT brain 09/[address] on Precedex drip to facilitate with weaning trials. CV: Place on Hydralazine 50mg Q8- Monitor HR and BP keep MAP>65mmHg Pulm: Continue with vent support keep sat >92% Check ABG bronchodilators, vent bundle, on solumederol 40mg Q8 Pulm is following- Dr. Richardson. s/p Bronch 12/8 which shoed mucoid secretions/mucous plugs CPAP trials as sia GI/liver: NPO. Resume tube feeds if remains intubated today Renal/: Monitor renal function, electrolytes replacement per protocol. d/c IVF. Will need Phos replacement today ID: Continue abx(Linezolid/Zosyn/Zithromax ) Continue Bactrim twice a day from outpatient for Nocardia prophylaxis. ID consulted. Pancultured 09/16 ( Blood, Sputum, urine)-NGTD Strep pneumonia and Legionella urinary Ag, Nasal washing for flu all negative Follow up on BAL results Endocrine: SSI for glycemic control as needed. Heme: Monitor CBC Endo: SI to maintain euglycemia Prophylaxis: Pepcid/SCDs/Lovenox Level 3 Isis Parikh MD Sep 18, 2017 08:34
[2017-09-18] MEDS: LINEZOLID 600 MG PREMIX 300 ML IV SCH ×2 (08:35→19:55)
[2017-09-18] MEDS: SODIUM CHLORIDE 0.9% FLUSH 10 ML FLUSH IV FLUSH SCH ×2 (08:35→19:55)
[2017-09-18] MEDS ORDERED: DEXMEDETOMIDINE INJ 200 MCG in SODIUM CHLORIDE 0.9% INJ 50 ML IV PRN (08:45)
[2017-09-18] MEDS: DEXMEDETOMIDINE INJ 1,000 MCG in SODIUM CHLOR 0.9% 250 ML INJ 240 ML IV PRN ×2 (09:52→22:12)
[2017-09-18] MEDS: hydrALAZINE HCL 20 MG/ML VIAL IV PUSH PRN ×2 (11:38→17:40)
[2017-09-18] MEDS: ENOXAPARIN SODIUM 40 MG/0.4 ML SYRINGE SQ SCH (11:39)
[2017-09-18] MEDS ORDERED: HALOPERIDOL LACTATE 5 MG/ML AMP IV PUSH ONE (12:45)
[2017-09-18] MEDS: RESP: ALBUTEROL 2.5 MG/IPRATROPIUM 0.5 MG NEB (SCH) INH ×2 (13:24→20:19)
[2017-09-18] MEDS: hydrALAZINE HCL 50 MG TAB PO SCH ×2 (13:41→19:55)
[2017-09-18] MEDS: AZITHROMYCIN INJ 500 MG in SODIUM CHLOR 0.9% 250 ML INJ 250 ML IV SCH (14:26)
[2017-09-18] MEDS ORDERED: hydrALAZINE HCL 20 MG/ML VIAL IV PUSH ONE (15:15)
[2017-09-18] MEDS ORDERED: METOPROLOL TARTRATE 25 MG TAB PO SCH (16:30)
[2017-09-18] MEDS: LABETALOL HCL 100 MG/20 ML VIAL IV PUSH PRN ×2 (17:13→22:09)
[2017-09-18] MEDS: METOPROLOL TARTRATE 25 MG TAB PO SCH (19:55)
[2017-09-19] VITALS (16 sets, daily range): BP systolic 123–180; BP diastolic 73–102; PULSE 65–126; RESP 14–29; TEMP 97.6–99; O2SAT 92–99
[2017-09-19] MEDS: RESP: ACETYLCYSTEINE 10% 30 ML NEB NEB SCH ×3 (00:13→16:00)
[2017-09-19] MEDS: RESP: ALBUTEROL 2.5 MG/IPRATROPIUM 0.5 MG NEB (PRN) INH (00:13)
[2017-09-19] MEDS: hydrALAZINE HCL 20 MG/ML VIAL IV PUSH PRN (00:30)
[2017-09-19] MEDS: PIPERACIL-TAZO 4.5 GM PREMIX 100 ML IV SCH ×4 (00:31→17:09)
[2017-09-19] MEDS: fentaNYL DRIP 250 ML IV PRN (02:30)
[2017-09-19] MEDS: CHLORHEXIDINE GLUCONATE 2 % 1 PACK (2 CLOTHS) TOP SCH (04:00)
[2017-09-19] MEDS: hydrALAZINE HCL 50 MG TAB PO SCH ×3 (05:13→20:02)
[2017-09-19] MEDS: methylPREDNISolone SOD SUCC 40 MG/1 ML VIAL IV PUSH SCH ×3 (05:13→20:02)
[2017-09-19] MEDS: INSULIN ASPART SUPPLEMENTAL SCALE SQ SCH ×4 (05:13→17:09)
[2017-09-19 07:00] LABS: AUTOMATED NEUTROPHIL # 8.6 TH/MM3 (1.8-7.7); BASOPHIL % 0.1 % (0.0-2.0); EOSINOPHIL % 0.1 % (0.0-4.0); HEMATOCRIT 40.7 % (39.0-51.0); HEMO FLAGS DIFF FINAL; LYMPH % 8.2 % (9.0-44.0); LYMPHOCYTE # 0.9 TH/MM3 (1.0-4.8); MEAN CELL VOLUME 85.8 FL (80.0-100.0); MEAN CORPUSCULAR HEMOGLOBIN 27.1 PG (27.0-34.0); MEAN CORPUSCULAR HGB CONC 31.6 % (32.0-36.0); MONO % 12.6 % (0.0-8.0); PLATELET COUNT 422 TH/MM3 (150-450); RED BLOOD COUNT 4.74 MIL/MM3 (4.50-5.90); RED CELL DISTRIBUTION WIDTH 19.4 % (11.6-17.2); WHITE BLOOD COUNT 10.9 TH/MM3 (4.0-11.0)
[2017-09-19 07:13] LABS: BICARBONATE 30.9 MEQ/L (21.0-32.0); MAGNESIUM 1.9 MG/DL (1.5-2.5); POTASSIUM 3.5 MEQ/L (3.5-5.1)
[2017-09-19] MEDS: METOPROLOL TARTRATE 25 MG TAB PO SCH ×2 (07:27→20:02)
[2017-09-19] MEDS: SODIUM CHLORIDE 0.9% FLUSH 10 ML FLUSH IV FLUSH SCH ×2 (07:27→20:03)
[2017-09-19] MEDS: LINEZOLID 600 MG PREMIX 300 ML IV SCH ×2 (07:27→20:01)
[2017-09-19] MEDS: FAMOTIDINE 20 MG TAB TUBE SCH ×2 (07:27→20:02)
[2017-09-19] MEDS: CHLORHEXIDINE 0.12% (ORAL KIT) 15 ML CUP MT SCH ×2 (07:28→19:49)
[2017-09-19] MEDS: RESP: ALBUTEROL 2.5 MG/IPRATROPIUM 0.5 MG NEB (SCH) INH ×3 (07:50→19:30)
--- NOTE | 2017-09-19 07:54 | HHI.CCPN ---
Subjective Remarks/Hospital Course 47-year-old male with a medical history significant for advanced COPD on home oxygen 2 L/m, Aspergillus lung infection for which at this time he was on mechanical ventilation and underwent a tracheostomy was seen by he had a left lower lobe lobectomy [place] [address] [facility], recent admission in April 2017 for nocardia pneumonia at [facility] at which time he was on mechanical ventilation underwent tracheostomy and was subsequently discharged on Bactrim by ID. He has followed up with pulmonary physician and had his tracheostomy decannulated 2 weeks ago and saw the infectious disease physician Dr. 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 He has been taking more than his usual dose of Flexeril and is also on chronic narcotics. Patient developed worsening delirium and confusion over the last 1 week which the patient's fianc attributes to taking excessive Flexeril. 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 Patient was brought in today with worsening mental status and shortness of breath. He has also been having some chills for the last 1 week off and on. He was noted be hypoxic on arrival in the ER with significant respiratory distress and was intubated emergently and placed on mechanical ventilation by ER physician. Critical care medicine was contacted and accepted patient for admission to the ICU. When I evaluated the patient in the ER he was sedated, orally intubated on mechanical ventilation. History was obtained by discussion with patient's fianc at the bedside. 09/17 Patient is sedated with Diprivan , fentanyl and intubated. Afebrile. For bronch today by pulmonary. 09/18 No events overnight. Sedated with Diprivan and Fentanyl drip. s/p Bronch yesterday which showed mucoid secretions/mucous plugs. Afebrile. 09/19 Patient remains intubated and sedated. Became restless, agitated and hypertensive on CPAP trials yesterday Objective Vital Signs Date Time Temp Pulse Resp B/P (MAP) Pulse Ox O2 Delivery O2 Flow Rate FiO2 09/19/17 06:00 65 09/19/17 04:00 97.9 20 162/92 (115) 96 09/19/17 04:00 40 09/16/17 10:57 Auto-Vent 09/16/17 05:55 15.00 Intake and Output 09/19/17 09/19/17 09/20/17 08:00 16:00 00:00 Intake Total 1444 ml Output Total 2450 ml Balance -1006 ml Result Diagram: 09/19/17 0540 09/19/17 0540 Other Results Laboratory Tests Test 09/19/17 05:40 White Blood Count 10.9 TH/MM3 Red Blood Count 4.74 MIL/MM3 Hemoglobin 12.9 GM/DL Hematocrit 40.7 % Mean Corpuscular Volume 85.8 FL Mean Corpuscular Hemoglobin 27.1 PG Mean Corpuscular Hemoglobin Concent 31.6 % Red Cell Distribution Width 19.4 % Platelet Count 422 TH/MM3 Mean Platelet Volume 6.8 FL Neutrophils (%) (Auto) 79.0 % Lymphocytes (%) (Auto) 8.2 % Monocytes (%) (Auto) 12.6 % Eosinophils (%) (Auto) 0.1 % Basophils (%) (Auto) 0.1 % Neutrophils # (Auto) 8.6 TH/MM3 Lymphocytes # (Auto) 0.9 TH/MM3 Monocytes # (Auto) 1.4 TH/MM3 Eosinophils # (Auto) 0.0 TH/MM3 Basophils # (Auto) 0.0 TH/MM3 CBC Comment DIFF FINAL Differential Comment Blood Urea Nitrogen 10 MG/DL Creatinine 0.41 MG/DL Random Glucose 112 MG/DL Calcium Level 8.3 MG/DL Phosphorus Level 2.7 MG/DL Magnesium Level 1.9 MG/DL Sodium Level 139 MEQ/L Potassium Level 3.5 MEQ/L Chloride Level 102 MEQ/L Carbon Dioxide Level 30.9 MEQ/L Anion Gap 6 MEQ/L Estimat Glomerular Filtration Rate 226 ML/MIN Imaging Last Impressions Chest X-Ray 09/17/17 0600 Signed Impressions: Service Date/Time: Sunday, September 17, 2017 05:04 - CONCLUSION: Stable appearance of the chest. Emigdio Lee MD Head CT 09/16/17 0000 Signed Impressions: Service Date/Time: September 20:16 - CONCLUSION: No acute disease. Teo Lopez MD CT Angiography 09/16/17 0000 Signed Impressions: Service Date/Time: September 11:06 - CONCLUSION: 1. No evidence for pulmonary artery embolism to the proximal subsegmental level. 2. Postsurgical features of left upper lobectomy with extensive right apical bullous emphysema and diffuse bilateral centrilobular emphysema. 3. Patchy airspace disease in the superior segment of the left lower lobe which may be post treatment change although developing pneumonia or less likely aspiration cannot be excluded. 4. 8mm right lower lobe subpleural and 9 mm right upper lobe platelike nodules. Consider followup examination in approximately 3-6 months per 2017 Fleischner criteria. Maxim Schreiber MD Objective Remarks GENERAL: PAtient is 47 yo intubated and sedated SKIN: Warm and dry. HEAD: Normocephalic. EYES: No scleral icterus. No injection or drainage. NECK: Supple, trachea midline. No JVD or lymphadenopathy. CARDIOVASCULAR: Regular rate and rhythm without murmurs, gallops, or rubs. RESPIRATORY: Breath sounds equal bilaterally. No accessory muscle use. Orally intubated GASTROINTESTINAL: Abdomen soft, non-tender, nondistended. MUSCULOSKELETAL: No cyanosis, or edema. Neuro: sedated, intubated A/P Assessment and Plan 47-year-old male with: Encephalopathy possibly secondary to narcotics/Flexeril Acute and chronic respiratory failure on mechanical ventilation Advanced COPD with COPD exacerbation Possible pneumonia Possible sepsis Recent nocardia pneumonia Chronic pain History of hypertension Plan: Neuro: Continue Roxicodone via OG tube to prevent opioid withdrawal. Follow neuro checks. Daily sedation vacation. CT brain 09/16 No acute disease On Precedex drip to facilitate with weaning trials. CV:On Hydralazine 50mg Q8, Lopressor 50mg Q12- Monitor HR and BP keep MAP>65mmHg Pulm: Continue with vent support keep sat >92% bronchodilators, vent bundle, on solumederol 40mg Q8 Pulm is following- Dr. Richardson. s/p Bronch 09/17 which shoed mucoid secretions/mucous plugs CPAP trials as sia GI/liver: On Glucerna 1.5 @60ml/hr Renal/: Monitor renal function, electrolytes replacement per protocol. ID: Continue abx(Linezolid/Zosyn/Zithromax ) Continue Bactrim twice a day from outpatient for Nocardia prophylaxis. ID consulted. Pancultured 09/16 ( Blood, Sputum, urine)-NGTD Strep pneumonia and Legionella urinary Ag, Nasal washing for flu all negative Follow up on BAL results-NGTD Endocrine: SSI for glycemic control as needed. Heme: Monitor CBC Endo: SI to maintain euglycemia Prophylaxis: Pepcid/SCDs/Lovenox Level 3 Isis Parikh MD Sep 19, 2017 07:54
[2017-09-19] MEDS ORDERED: oxyCODONE HCL 10 MG CONTROLLED RELEASE TAB PO SCH (09:00)
[2017-09-19 09:25] LABS: BLOOD GAS BASE EXCESS 6.6 mmol/L (-2-2); BLOOD GAS HCO3 31 mmol/L (22-26); BLOOD GAS METHEMOGLOBIN 1.1 % (0-2); BLOOD GAS O2 HGB SATURATION 94 % (90-100); BLOOD GAS OXYGEN CONTENT 17.2 Vol % (12.0-20.0); BLOOD GAS PCO2 50 mmHg (38-42); BLOOD GAS PO2 84 mmHg (61-120); TEMP CORR TO 98.6
[2017-09-19 09:26] LABS: CRITICAL VALUE NO; DRAW SITE RT RADIAL; FIO2 40 %; NUMBER OF ARTERIAL PUNCTURES 1; OXYGEN DEVICE VENTILATOR; STAT NO; ULNAR PULSE PRESENT; VENT SETTINGS CPAP 10/+5PEEP
[2017-09-19] MEDS: ENOXAPARIN SODIUM 40 MG/0.4 ML SYRINGE SQ SCH (10:35)
[2017-09-19] MEDS: AZITHROMYCIN INJ 500 MG in SODIUM CHLOR 0.9% 250 ML INJ 250 ML IV SCH (13:27)
[2017-09-19] MEDS: POTASSIUM CHLORIDE 25 MEQ EFFERVESCENT TAB PO PRN (13:52)
[2017-09-19] MEDS: MORPHINE SULFATE 2 MG/ML INJ IV PUSH PRN ×2 (16:32→20:02)
[2017-09-20] VITALS (12 sets, daily range): BP systolic 166–196; BP diastolic 93–102; PULSE 82–103; RESP 22–31; TEMP 98–98.8; O2SAT 93–99
[2017-09-20] MEDS: RESP: ALBUTEROL 2.5 MG/IPRATROPIUM 0.5 MG NEB (PRN) INH (00:01)
[2017-09-20] MEDS: MORPHINE SULFATE 2 MG/ML INJ IV PRN ×7 (00:03→23:03)
[2017-09-20] MEDS: PIPERACIL-TAZO 4.5 GM PREMIX 100 ML IV SCH ×2 (00:08→05:36)
[2017-09-20] MEDS: CHLORHEXIDINE GLUCONATE 2 % 1 PACK (2 CLOTHS) TOP SCH (04:00)
[2017-09-20] MEDS: methylPREDNISolone SOD SUCC 40 MG/1 ML VIAL IV PUSH SCH ×3 (05:36→19:44)
[2017-09-20] MEDS: INSULIN ASPART SUPPLEMENTAL SCALE SQ SCH ×4 (05:37→18:00)
[2017-09-20] MEDS: hydrALAZINE HCL 50 MG TAB PO SCH ×3 (05:37→21:49)
[2017-09-20 05:51] LABS: AUTOMATED NEUTROPHIL # 9.9 TH/MM3 (1.8-7.7); BASOPHIL % 0.1 % (0.0-2.0); EOSINOPHIL % 0.1 % (0.0-4.0); HEMATOCRIT 41.1 % (39.0-51.0); HEMO FLAGS DIFF FINAL; LYMPH % 9.3 % (9.0-44.0); LYMPHOCYTE # 1.2 TH/MM3 (1.0-4.8); MEAN CELL VOLUME 86.4 FL (80.0-100.0); MEAN CORPUSCULAR HEMOGLOBIN 27.5 PG (27.0-34.0); MEAN CORPUSCULAR HGB CONC 31.8 % (32.0-36.0); MONO % 11.5 % (0.0-8.0); PLATELET COUNT 461 TH/MM3 (150-450); RED BLOOD COUNT 4.75 MIL/MM3 (4.50-5.90); RED CELL DISTRIBUTION WIDTH 19.4 % (11.6-17.2); WHITE BLOOD COUNT 12.5 TH/MM3 (4.0-11.0)
[2017-09-20 06:02] LABS: BICARBONATE 34.1 MEQ/L (21.0-32.0); POTASSIUM 3.5 MEQ/L (3.5-5.1)
[2017-09-20] MEDS: LABETALOL HCL 100 MG/20 ML VIAL IV PUSH PRN ×4 (06:09→19:44)
--- NOTE | 2017-09-20 07:42 | HHI.CCPN ---
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 He has followed up with pulmonary physician and had his tracheostomy decannulated 2 weeks ago and saw the infectious disease physician Dr. 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 He has been taking more than his usual dose of Flexeril and is also on chronic narcotics. Patient developed worsening delirium and confusion over the last 1 week which the patient's fianc attributes to taking excessive Flexeril. 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 Patient was brought in today with worsening mental status and shortness of breath. He has also been having some chills for the last 1 week off and on. He was noted be hypoxic on arrival in the ER with significant respiratory distress and was intubated emergently and placed on mechanical ventilation by ER physician. Critical care medicine was contacted and accepted patient for admission to the ICU. When I evaluated the patient in the ER he was sedated, orally intubated on mechanical ventilation. History was obtained by discussion with patient's fianc at the bedside. 09/17 Patient is sedated with Diprivan , fentanyl and intubated. Afebrile. For bronch today by pulmonary. 09/18 No events overnight. Sedated with Diprivan and Fentanyl drip. s/p Bronch yesterday which showed mucoid secretions/mucous plugs. Afebrile. 09/19 Patient remains intubated and sedated. Became restless, agitated and hypertensive on CPAP trials yesterday 09/20 Patient s/p extubation yesterday. Awake and alert. Objective Vital Signs Date Time Temp Pulse Resp B/P (MAP) Pulse Ox O2 Delivery O2 Flow Rate FiO2 09/20/17 04:00 98.5 99 22 169/101 (123) 95 09/19/17 19:32 Nasal Cannula 4.00 12/10/17 08:00 40 Intake and Output 09/20/17 09/20/17 09/21/17 08:00 16:00 00:00 Intake Total 920 ml Output Total 850 ml Balance 70 ml Result Diagram: 09/20/17 0421 09/20/17 0421 Other Results Laboratory Tests Test 09/19/17 09:04 09/20/17 04:21 Blood Gas Puncture Site RT RADIAL Blood Gas Patient Temperature 98.6 Blood Gas HCO3 31 mmol/L Blood Gas Base Excess 6.6 mmol/L Blood Gas Oxygen Saturation 94 % Arterial Blood pH 7.42 Arterial Blood Partial Pressure CO2 50 mmHg Arterial Blood Partial Pressure O2 84 mmHg Arterial Blood Oxygen Content 17.2 Vol % Arterial Blood Carboxyhemoglobin 1.0 % Arterial Blood Methemoglobin 1.1 % Blood Gas Hemoglobin 13.0 G/DL Oxygen Delivery Device VENTILATOR Blood Gas Ventilator Setting CPAP 10/+5PEEP Blood Gas Inspired Oxygen 40 % White Blood Count 12.5 TH/MM3 Red Blood Count 4.75 MIL/MM3 Hemoglobin 13.1 GM/DL Hematocrit 41.1 % Mean Corpuscular Volume 86.4 FL Mean Corpuscular Hemoglobin 27.5 PG Mean Corpuscular Hemoglobin Concent 31.8 % Red Cell Distribution Width 19.4 % Platelet Count 461 TH/MM3 Mean Platelet Volume 6.8 FL Neutrophils (%) (Auto) 79.0 % Lymphocytes (%) (Auto) 9.3 % Monocytes (%) (Auto) 11.5 % Eosinophils (%) (Auto) 0.1 % Basophils (%) (Auto) 0.1 % Neutrophils # (Auto) 9.9 TH/MM3 Lymphocytes # (Auto) 1.2 TH/MM3 Monocytes # (Auto) 1.4 TH/MM3 Eosinophils # (Auto) 0.0 TH/MM3 Basophils # (Auto) 0.0 TH/MM3 CBC Comment DIFF FINAL Differential Comment Blood Urea Nitrogen 9 MG/DL Creatinine 0.57 MG/DL Random Glucose 81 MG/DL Calcium Level 8.9 MG/DL Sodium Level 139 MEQ/L Potassium Level 3.5 MEQ/L Chloride Level 100 MEQ/L Carbon Dioxide Level 34.1 MEQ/L Anion Gap 5 MEQ/L Estimat Glomerular Filtration Rate 155 ML/MIN Imaging Last Impressions Chest X-Ray 09/17/17 0600 Signed Impressions: Service Date/Time: Sunday, September 17, 2017 05:04 - CONCLUSION: Stable appearance of the chest. Emigdio Lee MD Head CT 09/16/17 0000 Signed Impressions: Service Date/Time: September 20:16 - CONCLUSION: No acute disease. Teo Lopez MD CT Angiography 09/16/17 0000 Signed Impressions: Service Date/Time: September 11:06 - CONCLUSION: 1. No evidence for pulmonary artery embolism to the proximal subsegmental level. 2. Postsurgical features of left upper lobectomy with extensive right apical bullous emphysema and diffuse bilateral centrilobular emphysema. 3. Patchy airspace disease in the superior segment of the left lower lobe which may be post treatment change although developing pneumonia or less likely aspiration cannot be excluded. 4. 8mm right lower lobe subpleural and 9 mm right upper lobe platelike nodules. Consider followup examination in approximately 3-6 months per 2017 Fleischner criteria. Maxim Schreiber MD Objective Remarks GENERAL: PAtient is 47 yo lying in bed in NAD SKIN: Warm and dry. HEAD: Normocephalic. EYES: No scleral icterus. No injection or drainage. NECK: Supple, trachea midline. No JVD or lymphadenopathy. CARDIOVASCULAR: Regular rate and rhythm without murmurs, gallops, or rubs. RESPIRATORY: Breath sounds equal bilaterally. No accessory muscle use. GASTROINTESTINAL: Abdomen soft, non-tender, nondistended. MUSCULOSKELETAL: No cyanosis, or edema. Neuro: Awake and alert A/P Assessment and Plan 47-year-old male with: Encephalopathy possibly secondary to narcotics/Flexeril- Resolved Acute and chronic respiratory failure- Extubated 09/19 Advanced COPD with COPD exacerbation Possible pneumonia Possible sepsis Recent nocardia pneumonia Chronic pain History of hypertension Plan: Neuro: Continue Roxicodone via OG tube to prevent opioid withdrawal. Follow neuro checks. CT brain 09/16 No acute disease CV:On Hydralazine 50mg Q8, Lopressor 50mg Q12- Add Cardizem 60mg 6-Monitor HR and BP keep MAP>65mmHg Pulm: Continue with vent support keep sat >92% bronchodilators, decrease solumederol 40mg Q12 Pulm is following- Dr. Richardson. s/p Bronch 09/17 showed mucoid secretions/mucous plugs l GI/liver: On PO diet Renal/: Monitor renal function, electrolytes replacement per protocol. ID: Continue abx(Linezolid/Zosyn/Zithromax ) On Bactrim for Nocardia prophylaxis ID consulted. Pancultured 09/16 ( Blood, Sputum, urine)-NGTD Strep pneumonia and Legionella urinary Ag, Nasal washing for flu all negative Follow up on BAL results-NGTD Endocrine: SSI for glycemic control as needed. Heme: Monitor CBC Endo: SI to maintain euglycemia Prophylaxis: Pepcid/SCDs/Lovenox Will sign off and transfer care to [facility] Level 3 Isis Parikh MD Sep 20, 2017 07:42
[2017-09-20] MEDS: RESP: ACETYLCYSTEINE 10% 30 ML NEB NEB SCH ×2 (07:52)
[2017-09-20] MEDS: RESP: ALBUTEROL 2.5 MG/IPRATROPIUM 0.5 MG NEB (SCH) INH ×3 (07:52→21:38)
[2017-09-20] MEDS: METOPROLOL TARTRATE 25 MG TAB PO SCH ×2 (08:03→19:43)
[2017-09-20] MEDS: FAMOTIDINE 20 MG TAB TUBE SCH ×2 (08:03→19:43)
[2017-09-20] MEDS: SODIUM CHLORIDE 0.9% FLUSH 10 ML FLUSH IV FLUSH SCH ×2 (08:05→19:44)
[2017-09-20] MEDS: LINEZOLID 600 MG PREMIX 300 ML IV SCH (08:05)
[2017-09-20] MEDS: CHLORHEXIDINE 0.12% (ORAL KIT) 15 ML CUP MT SCH ×2 (08:06→19:45)
[2017-09-20] MEDS: ENOXAPARIN SODIUM 40 MG/0.4 ML SYRINGE SQ SCH (10:14)
--- NOTE | 2017-09-20 10:52 | HHI.IDPN ---
Note Infectious Disease Note Patient is on O2 via nasal canula. Denies SOB. Notes that he has pain in the lower back and across the abdomen. Afebrile. Presented to the emergency department with shortness of breath and was intubated. Bronch culture has no growth. Mucous plugging noted upon bronchoscopy. PAST MEDICAL HISTORY 1. COPD. 2. Aspergillus pneumonia. 3. Nocardia pneumonia. 4. Benign prostatic hypertrophy. 5. Left lower lobectomy. ALLERGIES NO KNOWN DRUG ALLERGIES. ANTIBIOTICS 1. Azithromycin. 2. Linezolid. 3. Piperacillin/tazobactam. OBJECTIVE: Vital Signs Date Time Temp Pulse Resp B/P (MAP) Pulse Ox O2 Delivery O2 Flow Rate FiO2 09/20/17 07:52 97 Nasal Cannula 3.50 09/20/17 04:00 98.5 99 22 169/101 (123) 95 09/20/17 00:00 98.7 88 29 174/96 (122) 97 09/19/17 20:00 98.9 126 29 149/86 (107) 92 09/19/17 19:32 95 Nasal Cannula 4.00 09/19/17 19:00 Nasal Cannula 3.00 09/19/17 18:00 99 09/19/17 16:37 31 09/19/17 16:00 92 09/19/17 16:00 98.0 92 26 144/81 (102) 94 09/19/17 14:00 99 09/19/17 13:47 26 09/19/17 12:00 97.7 76 16 123/73 (90) 96 09/19/17 12:00 76 Laboratory Tests Test 09/19/17 05:40 09/20/17 04:21 White Blood Count 10.9 TH/MM3 12.5 TH/MM3 Red Blood Count 4.74 MIL/MM3 4.75 MIL/MM3 Hemoglobin 12.9 GM/DL 13.1 GM/DL Hematocrit 40.7 % 41.1 % Mean Corpuscular Volume 85.8 FL 86.4 FL Mean Corpuscular Hemoglobin 27.1 PG 27.5 PG Mean Corpuscular Hemoglobin Concent 31.6 % 31.8 % Red Cell Distribution Width 19.4 % 19.4 % Platelet Count 422 TH/MM3 461 TH/MM3 Mean Platelet Volume 6.8 FL 6.8 FL Neutrophils (%) (Auto) 79.0 % 79.0 % Lymphocytes (%) (Auto) 8.2 % 9.3 % Monocytes (%) (Auto) 12.6 % 11.5 % Eosinophils (%) (Auto) 0.1 % 0.1 % Basophils (%) (Auto) 0.1 % 0.1 % Neutrophils # (Auto) 8.6 TH/MM3 9.9 TH/MM3 Lymphocytes # (Auto) 0.9 TH/MM3 1.2 TH/MM3 Monocytes # (Auto) 1.4 TH/MM3 1.4 TH/MM3 Eosinophils # (Auto) 0.0 TH/MM3 0.0 TH/MM3 Basophils # (Auto) 0.0 TH/MM3 0.0 TH/MM3 CBC Comment DIFF FINAL DIFF FINAL Differential Comment Laboratory Tests Test 09/19/17 05:40 09/20/17 04:21 Blood Urea Nitrogen 10 MG/DL 9 MG/DL Creatinine 0.41 MG/DL 0.57 MG/DL Random Glucose 112 MG/DL 81 MG/DL Calcium Level 8.3 MG/DL 8.9 MG/DL Phosphorus Level 2.7 MG/DL Magnesium Level 1.9 MG/DL Sodium Level 139 MEQ/L 139 MEQ/L Potassium Level 3.5 MEQ/L 3.5 MEQ/L Chloride Level 102 MEQ/L 100 MEQ/L Carbon Dioxide Level 30.9 MEQ/L 34.1 MEQ/L Anion Gap 6 MEQ/L 5 MEQ/L Estimat Glomerular Filtration Rate 226 ML/MIN 155 ML/MIN Microbiology Date/Time Source Procedure Growth Status 09/17/17 11:25 Bronchial Washings Bronchial Fungal Smear - Final NO FUNGAL ELEMENTS SEEN. Resulted 09/17/17 11:25 Bronchial Washings Bronchial Fungal Culture Pending Resulted 09/17/17 11:25 Bronchial Washings Bronchial Acid Fast Stain - Final NO ACID FAST BACILLI SEEN Resulted 09/17/17 11:25 Bronchial Washings Bronchial Mycobacterial Culture Pending Resulted 09/17/17 11:25 Bronchial Washings Bronchial Gram Stain - Final Complete 09/17/17 11:25 Bronchial Washings Bronchial Bronchial Culture - Final NO GROWTH IN 48 HOURS. Complete IMAGING: Chest X-Ray 09/17/17 0600 Signed Impressions: Service Date/Time: Sunday, September 17, 2017 05:04 - CONCLUSION: Stable appearance of the chest. Emigdio Lee MD Head CT 09/16/17 0000 Signed Impressions: Service Date/Time: September 20:16 - CONCLUSION: No acute disease. Teo Lopez MD CT Angiography 09/16/17 0000 Signed Impressions: Service Date/Time: September 11:06 - CONCLUSION: 1. No evidence for pulmonary artery embolism to the proximal subsegmental level. 2. Postsurgical features of left upper lobectomy with extensive right apical bullous emphysema and diffuse bilateral centrilobular emphysema. 3. Patchy airspace disease in the superior segment of the left lower lobe which may be post treatment change although developing pneumonia or less likely aspiration cannot be excluded. 4. 8mm right lower lobe subpleural and 9 mm right upper lobe platelike nodules. Consider followup examination in approximately 3-6 months per 2017 Fleischner criteria. Maxim Schreiber MD PHYSICAL EXAMINATION GENERAL: No acute distress. HEENT: EOMI, EFE. No icterus. NECK: No adenopathy or swelling. LUNGS: clear breath sounds on the right. Post left lower lobectomy. HEART: Regular, S1-S2. 2/6 systolic murmur. ABDOMEN: Bowel sounds present, soft, no tenderness appreciated. EXTREMITIES: No clubbing, cyanosis or edema. SKIN: No rash. NEURO: non focal. PSYCH: calm and cooperative. IMPRESSION 1. Acute respiratory failure. Mucous plugging. 2. Probable pneumonia. The patient has history of Nocardia pulmonary infection which is recently treated and has been continued to be managed with maintenance Bactrim. 3. COPD. RECOMMENDATIONS 1. Stop linezolid. 2. Stop piperacillin/tazobactam. 3. Continue Azithromycin. 4. Monitor cultures. bronch, sputum, Blood and Bronch specimen. 5. Resume Nocardia maintenance treatment with Bactrim DS 1 Tab PO BID. Patient follows with ID in [place]. Has to take 2 more months of Bactrim to complete 6 month planned maintenance. 6. Monitor temperature. Jesus Vu MD Sep 20, 2017 10:52
[2017-09-20] MEDS: SULFAMETHOXAZOLE-TRIMETHOPRIM DS 800-160 MG TAB PO SCH ×2 (12:41→19:43)
[2017-09-20] MEDS ORDERED: DOCUSATE SODIUM 50 MG/SENNA 8.6 MG TAB PO PRN (13:00)
[2017-09-20] MEDS: AZITHROMYCIN INJ 500 MG in SODIUM CHLOR 0.9% 250 ML INJ 250 ML IV SCH (14:19)
[2017-09-20] MEDS: DILTIAZEM HCL 60 MG TAB PO SCH ×3 (14:30→23:03)
--- NOTE | 2017-09-20 19:03 | HHI.PR ---
Subjective Remarks Extubated and on O2 3 L. Has some cough with wheezing. No fever. CXR shows left basal infiltrate. Taking PO well. Objective Vital Signs Date Time Temp Pulse Resp B/P (MAP) Pulse Ox O2 Delivery O2 Flow Rate FiO2 09/20/17 18:00 100 09/20/17 16:00 99 09/20/17 16:00 98.5 99 28 175/99 (124) 97 09/20/17 14:00 91 09/20/17 12:00 98.7 82 29 179/102 (127) 96 09/20/17 12:00 82 09/20/17 10:00 83 09/20/17 08:00 87 09/20/17 08:00 98.0 87 23 196/100 (132) 99 09/20/17 07:52 97 Nasal Cannula 3.50 09/20/17 07:00 98 Nasal Cannula 3.00 09/20/17 04:00 98.5 99 22 169/101 (123) 95 09/20/17 00:00 98.7 88 29 174/96 (122) 97 09/19/17 20:00 98.9 126 29 149/86 (107) 92 09/19/17 19:32 95 Nasal Cannula 4.00 I/O 09/19/17 09/19/17 09/19/17 09/20/17 09/20/17 09/20/17 06:59 14:59 22:59 06:59 14:59 22:59 Intake Total 1186 ml 1020 ml 1650 ml 920 ml 825 ml Output Total 2450 ml 900 ml 1175 ml 850 ml 1325 ml Balance -1264 ml 120 ml 475 ml 70 ml -500 ml Intake Oral 1000 ml 720 ml 825 ml IV Total 450 ml 762 ml 650 ml 200 ml Tube Feeding 486 ml 138 ml Tube Irrigant 120 ml Other 250 ml Output Urine Total 2450 ml 900 ml 1175 ml 850 ml 1325 ml # Bowel Movements 0 0 3 2 Result Diagram: 09/20/1742009/20/17420 Objective Remarks GENERAL: This thinly built, middle-aged white male who is alert and responds well. HEENT: Head normocephalic. Pupils are reactive. Tongue moist. Nasal mucosa edematous. Throat is clear. NECK: No bruits or thyroid enlargement, no lymphadenopathy. CHEST: Decreased breath sounds over the periphery with wheezes bilaterally and occasional crackles scattered over the left chest. Scar of surgery over the left chest. CARDIOVASCULAR: Heart sounds are regular. S1-S2. No murmur. ABDOMEN: Soft, nontender. No organomegaly. Bowel sounds are active. EXTREMITIES: No edema with diminished reflexes. The patient is oriented. Assessment and Plan Assessment and Plan IMPRESSION 1. Acute respiratory failure. 2. 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 3. History of Aspergillus pneumonia and Nocardia. 4. Chronic liver disease. 5. Encephalopathy. Plan : 1. Cont Antibiotics per ID 2. nebs qid , duoneb. 3. O2 at 3 L. 4. IS q2h, bedside. 5. CBC,BMP in am. 6. PFT when stable. 7. Taper solumedrol to 40 mg bid. 8. CHest Xray . Kary Richardson MD Sep 20, 2017 19:03
--- NOTE | 2017-09-20 20:14 | RADRPT ---
EXAM DATE/TIME: 09/20/2017 19:21 [facility] COMPARISON: No previous studies available for comparison. INDICATIONS : Infiltrate. MEDICAL HISTORY : Cardiovascular disease. SURGICAL HISTORY : Left lobectomy. ENCOUNTER: Subsequent ACUITY: 2 days PAIN SCORE: 0/10 LOCATION: Right chest FINDINGS: Again seen are changes of basilar density, likely atelectasis. Chronic blunting left costophrenic ang le. Severe emphysema upper right lung. Cerclage wires upper left posterior ribs. CONCLUSION: 1. No acute findings. Dannie Alston MD on September 20, 2017 at 20:11 Board Certified Radiologist. This report was verified electronically.
--- NOTE | 2017-09-20 21:19 | RADRPT ---
EXAM DATE/TIME: 09/20/2017 21:01 [facility] COMPARISON: No previous studies available for comparison. INDICATIONS : Abdomen pain. ORAL CONTRAST: No oral contrast ingested. RADIATION DOSE: 5.76 CTDIvol (mGy) MEDICAL HISTORY : Cardiovascular disease. Chronic obstructive pulmonary disease. Diverticulitis. SURGICAL HISTORY : Lobectomy. Hernia ENCOUNTER: Initial ACUITY: 1 day PAIN SCALE: 5/10 LOCATION: Bilateral abdomen TECHNIQUE: Volumetric scanning of the abdomen and pelvis was performed. Using automated exposure control and ad justment of the mA and/or kV according to patient size, radiation dose was kept as low as reasonably achievable to obtain optimal diagnostic quality images. DICOM format image data is available electro nically for review and comparison. FINDINGS: Lung bases demonstrate some scarring at the left lung base and to a lesser extent the right lung base . Minimal groundglass opacity right lung base. Underlying panlobular emphysema. No acute findings in the liver, spleen, adrenals, kidneys or pancreas. No free fluid. No bowel obstru ction. No adenopathy. No acute bony abnormalities. CONCLUSION: 1. No acute findings within the abdomen and pelvis. 2. Mild ground glass opacity right lung base could represent a mild infection. Underlying emphysema. Dannie Alston MD on September 20, 2017 at 21:12 Board Certified Radiologist. This report was verified electronically.
[2017-09-21] VITALS (15 sets, daily range): BP systolic 117–175; BP diastolic 64–95; PULSE 79–107; RESP 18–28; TEMP 97.9–99.1; O2SAT 95–99
[2017-09-21] MEDS: CHLORHEXIDINE GLUCONATE 2 % 1 PACK (2 CLOTHS) TOP SCH (00:30)
[2017-09-21] MEDS: MORPHINE SULFATE 2 MG/ML INJ IV PRN ×5 (02:11→19:43)
[2017-09-21] MEDS: DILTIAZEM HCL 60 MG TAB PO SCH ×3 (05:30→17:52)
[2017-09-21] MEDS: hydrALAZINE HCL 50 MG TAB PO SCH ×3 (05:30→21:09)
[2017-09-21] MEDS: INSULIN ASPART SUPPLEMENTAL SCALE SQ SCH ×4 (05:34→18:00)
[2017-09-21] MEDS: CHLORHEXIDINE 0.12% (ORAL KIT) 15 ML CUP MT SCH ×2 (08:00→20:00)
[2017-09-21] MEDS: RESP: ALBUTEROL 2.5 MG/IPRATROPIUM 0.5 MG NEB (SCH) INH ×3 (08:01→21:15)
--- NOTE | 2017-09-21 08:06 | HHI.CCPN ---
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 He has followed up with pulmonary physician and had his tracheostomy decannulated 2 weeks ago and saw the infectious disease physician Dr. 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 He has been taking more than his usual dose of Flexeril and is also on chronic narcotics. Patient developed worsening delirium and confusion over the last 1 week which the patient's fianc attributes to taking excessive Flexeril. 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 Patient was brought in today with worsening mental status and shortness of breath. He has also been having some chills for the last 1 week off and on. He was noted be hypoxic on arrival in the ER with significant respiratory distress and was intubated emergently and placed on mechanical ventilation by ER physician. Critical care medicine was contacted and accepted patient for admission to the ICU. When I evaluated the patient in the ER he was sedated, orally intubated on mechanical ventilation. History was obtained by discussion with patient's fianc at the bedside. 09/17 Patient is sedated with Diprivan , fentanyl and intubated. Afebrile. For bronch today by pulmonary. 09/18 No events overnight. Sedated with Diprivan and Fentanyl drip. s/p Bronch yesterday which showed mucoid secretions/mucous plugs. Afebrile. 09/19 Patient remains intubated and sedated. Became restless, agitated and hypertensive on CPAP trials yesterday 09/20 Patient s/p extubation yesterday. Awake and alert. 09/[address] abd/pelvis last night showed no acute findings Objective Vital Signs Date Time Temp Pulse Resp B/P (MAP) Pulse Ox O2 Delivery O2 Flow Rate FiO2 09/21/17 04:00 82 09/21/17 04:00 98.1 25 154/90 (111) 98 09/20/17 21:41 Nasal Cannula 3.00 09/19/17 08:00 40 Result Diagram: 09/20/171 09/20/17 0421 Imaging Last Impressions Chest X-Ray 09/20/17 0000 Signed Impressions: Service Date/Time: Wednesday, September 20, 2017 19:21 - CONCLUSION: 1. No acute findings. Dannie Alston MD Abdomen/Pelvis CT 09/20/17 0000 Signed Impressions: Service Date/Time: Wednesday, September 20, 2017 21:01 - CONCLUSION: 1. No acute findings within the abdomen and pelvis. 2. Mild ground glass opacity right lung base could represent a mild infection. Underlying emphysema. Dannie Alston MD Head CT 09/16/17 0000 Signed Impressions: Service Date/Time: September 20:16 - CONCLUSION: No acute disease. Teo Lopez MD CT Angiography 09/16/17 0000 Signed Impressions: Service Date/Time: September 11:06 - CONCLUSION: 1. No evidence for pulmonary artery embolism to the proximal subsegmental level. 2. Postsurgical features of left upper lobectomy with extensive right apical bullous emphysema and diffuse bilateral centrilobular emphysema. 3. Patchy airspace disease in the superior segment of the left lower lobe which may be post treatment change although developing pneumonia or less likely aspiration cannot be excluded. 4. 8mm right lower lobe subpleural and 9 mm right upper lobe platelike nodules. Consider followup examination in approximately 3-6 months per 2017 Fleischner criteria. Maxim Schreiber MD Objective Remarks GENERAL: PAtient is 47 yo lying in bed in NAD SKIN: Warm and dry. HEAD: Normocephalic. EYES: No scleral icterus. No injection or drainage. NECK: Supple, trachea midline. No JVD or lymphadenopathy. CARDIOVASCULAR: Regular rate and rhythm without murmurs, gallops, or rubs. RESPIRATORY: Breath sounds equal bilaterally. No accessory muscle use. GASTROINTESTINAL: Abdomen soft, non-tender, nondistended. MUSCULOSKELETAL: No cyanosis, or edema. Neuro: Awake and alert A/P Assessment and Plan 47-year-old male with: Encephalopathy possibly secondary to narcotics/Flexeril- Resolved Acute and chronic respiratory failure- Extubated 09/19 Advanced COPD with COPD exacerbation Possible pneumonia Possible sepsis Recent nocardia pneumonia Chronic pain History of hypertension Plan: Neuro: Continue Roxicodone via OG tube to prevent opioid withdrawal. Follow neuro checks. CT brain 09/16 No acute disease CV:On Hydralazine 50mg Q8, Lopressor 50mg Q12, Cardizem 60mg 6-Monitor HR and BP keep MAP>65mmHg Pulm: Continue with vent support keep sat >92% bronchodilators, solumederol 40mg Q12 Pulm is following- Dr. Richardson. s/p Bronch 09/17 showed mucoid secretions/mucous plugs l GI/liver: On PO diet Renal/: Monitor renal function, electrolytes replacement per protocol. ID: Continue abx(Zithromax ) On Bactrim for Nocardia maintenance treatment ID consulted. Pancultured 09/16 ( Blood, Sputum, urine)-NGTD Strep pneumonia and Legionella urinary Ag, Nasal washing for flu all negative Follow up on BAL results-NGTD Endocrine: SSI for glycemic control as needed. Heme: Monitor CBC Endo: SI to maintain euglycemia Prophylaxis: Pepcid/SCDs/Lovenox Awaiting transfer to floor, [facility] for medical management Level 3 Isis Parikh MD Sep 21, 2017 08:06
[2017-09-21] MEDS: SULFAMETHOXAZOLE-TRIMETHOPRIM DS 800-160 MG TAB PO SCH ×2 (08:21→21:09)
[2017-09-21] MEDS: FAMOTIDINE 20 MG TAB TUBE SCH ×2 (08:21→21:09)
[2017-09-21] MEDS: SODIUM CHLORIDE 0.9% FLUSH 10 ML FLUSH IV FLUSH SCH ×2 (08:22→21:16)
[2017-09-21] MEDS: METOPROLOL TARTRATE 25 MG TAB PO SCH ×2 (08:22→21:09)
[2017-09-21] MEDS: methylPREDNISolone SOD SUCC 40 MG/1 ML VIAL IV PUSH SCH (08:22)
[2017-09-21] MEDS: POTASSIUM CHLORIDE 25 MEQ EFFERVESCENT TAB PO PRN (08:35)
[2017-09-21 09:10] LABS: AUTOMATED NEUTROPHIL # 18.2 TH/MM3 (1.8-7.7); BASOPHIL % 0.2 % (0.0-2.0); EOSINOPHIL % 0.1 % (0.0-4.0); HEMATOCRIT 40.5 % (39.0-51.0); LYMPH % 4.2 % (9.0-44.0); LYMPHOCYTE # 0.9 TH/MM3 (1.0-4.8); MEAN CELL VOLUME 85.3 FL (80.0-100.0); MEAN CORPUSCULAR HEMOGLOBIN 27.3 PG (27.0-34.0); MONO % 10.9 % (0.0-8.0); NEUT % 84.6 % (16.0-70.0); PLATELET COUNT 355 TH/MM3 (150-450); RED BLOOD COUNT 4.74 MIL/MM3 (4.50-5.90); RED CELL DISTRIBUTION WIDTH 18.3 % (11.6-17.2); WHITE BLOOD COUNT 21.5 TH/MM3 (4.0-11.0)
[2017-09-21 09:16] LABS: HEMO FLAGS AUTO DIFF
[2017-09-21 09:51] LABS: BICARBONATE 30.7 MEQ/L (21.0-32.0); POTASSIUM 3.9 MEQ/L (3.5-5.1)
[2017-09-21 10:00] LABS: OVALOCYTES 1+ (NORMAL); PLATELET ESTIMATE SMEAR NORMAL (NORMAL); PLATELET MORPHOLOGY NORMAL (NORMAL); SCAN/DIFF AUTO DIFF CONFIRMED
[2017-09-21] MEDS: ENOXAPARIN SODIUM 40 MG/0.4 ML SYRINGE SQ SCH (11:19)
[2017-09-21 13:19] LABS: BASOPHIL # 0.1 TH/MM3 (0-0.2); BASOPHIL % 0.3 % (0.0-2.0); HEMATOCRIT 42.9 % (39.0-51.0); HEMO FLAGS DIFF FINAL; LYMPH % 1.7 % (9.0-44.0); LYMPHOCYTE # 0.5 TH/MM3 (1.0-4.8); MEAN CORPUSCULAR HEMOGLOBIN 26.8 PG (27.0-34.0); MEAN CORPUSCULAR HGB CONC 31.5 % (32.0-36.0); MONO % 5.9 % (0.0-8.0); NEUT % 92.1 % (16.0-70.0); PLATELET COUNT 382 TH/MM3 (150-450); RED BLOOD COUNT 5.05 MIL/MM3 (4.50-5.90); WHITE BLOOD COUNT 27.2 TH/MM3 (4.0-11.0)
[2017-09-21] MEDS: AZITHROMYCIN INJ 500 MG in SODIUM CHLOR 0.9% 250 ML INJ 250 ML IV SCH (14:13)
[2017-09-21] MEDS: MORPHINE SULFATE 2 MG/ML INJ IV PUSH PRN ×2 (15:46→21:10)
--- NOTE | 2017-09-21 18:11 | HHI.PR ---
Subjective Remarks Extubated and on O2 3 L. Keeps O2 off. Has some cough but better.. No fever. CXR shows left basal infiltrate. Taking PO well. Objective Vital Signs Date Time Temp Pulse Resp B/P (MAP) Pulse Ox O2 Delivery O2 Flow Rate FiO2 09/21/17 14:54 99.1 99 18 139/86 (103) 96 09/21/17 14:00 96 09/21/17 13:00 96 09/21/17 12:00 98.3 92 28 143/83 (103) 95 09/21/17 12:00 92 09/21/17 10:00 86 09/21/17 09:00 97 09/21/17 08:02 96 Nasal Cannula 3.00 09/21/17 08:00 98.0 83 23 117/64 (81) 95 09/21/17 08:00 83 09/21/17 07:00 99 Nasal Cannula 3.00 09/21/17 07:00 84 09/21/17 06:00 79 09/21/17 04:00 82 09/21/17 04:00 98.1 82 25 154/90 (111) 98 09/21/17 02:00 95 09/21/17 00:00 87 09/21/17 00:00 98.6 87 24 157/92 (113) 97 09/20/17 22:00 90 09/20/17 21:41 97 Nasal Cannula 3.00 09/20/17 20:00 103 09/20/17 20:00 93 Nasal Cannula 3.00 09/20/17 20:00 98.8 103 31 166/93 (117) 93 I/O 09/20/17 09/20/17 09/20/17 09/21/17 09/21/17 09/21/17 07:00 15:00 23:00 07:00 15:00 23:00 Intake Total 920 ml 300 ml 1075 ml 200 ml 350 ml Output Total 850 ml 1325 ml 2250 ml 900 ml Balance 70 ml 300 ml -250 ml -2050 ml -550 ml Intake Oral 720 ml 825 ml 200 ml 350 ml IV Total 200 ml 300 ml 250 ml Output Urine Total 850 ml 1325 ml 2250 ml 900 ml # Bowel Movements 3 2 0 1 Result Diagram: 09/21/17 1151 09/21/17 0655 Objective Remarks GENERAL: This thinly built, middle-aged white male who is alert and oriented HEENT: Head normocephalic. Pupils are reactive. Tongue moist. Nasal mucosa edematous. Throat is clear. NECK: No bruits or thyroid enlargement, no lymphadenopathy. CHEST: Decreased breath sounds over the periphery with wheezes bilaterally and occasional crackles over the left chest. Scar of surgery over the left chest. CARDIOVASCULAR: Heart sounds are regular. S1-S2. No murmur. ABDOMEN: Soft, nontender. No organomegaly. Bowel sounds are active. EXTREMITIES: No edema with diminished reflexes. The patient is oriented. Assessment and Plan Assessment and Plan IMPRESSION 1. Acute respiratory failure. 2. 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 3. History of Aspergillus pneumonia and Nocardia. 4. Chronic liver disease. 5. Encephalopathy. Plan : 1. Cont Antibiotics per ID 2. nebs qid , duoneb. 3. Wean O2 to 2 L. 4. IS q2h, bedside. 5. CBC ,BMP in am. 6. PFT when stable. 7. D/C solumedrol 8. Add Prednisone 20 mg bid Kary Richardson MD Sep 21, 2017 18:11
[2017-09-21] MEDS: predniSONE 20 MG TAB PO SCH (21:09)
[2017-09-22] VITALS (10 sets, daily range): BP systolic 137–179; BP diastolic 90–98; PULSE 85–122; RESP 18; TEMP 97.9–98.5; O2SAT 94–99
[2017-09-22] MEDS: DILTIAZEM HCL 60 MG TAB PO SCH ×5 (00:09→20:17)
[2017-09-22] MEDS: MORPHINE SULFATE 2 MG/ML INJ IV PRN (01:26)
[2017-09-22] MEDS: CHLORHEXIDINE GLUCONATE 2 % 1 PACK (2 CLOTHS) TOP SCH (04:00)
[2017-09-22] MEDS: hydrALAZINE HCL 50 MG TAB PO SCH ×3 (05:11→20:17)
[2017-09-22] MEDS: MORPHINE SULFATE 2 MG/ML INJ IV PUSH PRN ×5 (05:13→22:04)
[2017-09-22] MEDS: INSULIN ASPART SUPPLEMENTAL SCALE SQ SCH ×4 (06:00→18:00)
[2017-09-22] MEDS: RESP: ALBUTEROL 2.5 MG/IPRATROPIUM 0.5 MG NEB (SCH) INH (07:37)
[2017-09-22] MEDS: CHLORHEXIDINE 0.12% (ORAL KIT) 15 ML CUP MT SCH ×2 (08:00→20:00)
--- NOTE | 2017-09-22 08:25 | HHI.PR ---
Subjective Remarks f/u; respiratory failure in no acute distress but complaining of moderate to severe back pain. on two liters of oxygen via N/C. afebrile. d/w the RN. at the bedside. Objective Vitals Vital Signs Date Time Temp Pulse Resp B/P (MAP) Pulse Ox O2 Delivery O2 Flow Rate FiO2 09/22/17 07:38 98 Nasal Cannula 2.00 09/22/17 05:07 98.2 91 18 162/98 (119) 96 09/22/17 04:00 98.5 92 18 158/90 (112) 98 09/22/17 00:00 98.5 85 18 167/93 (117) 99 09/21/17 21:19 97 Nasal Cannula 3.00 09/21/17 20:00 97.9 101 18 175/95 (121) 99 09/21/17 20:00 107 09/21/17 18:52 17 09/21/17 15:51 19 09/21/17 15:07 96 Nasal Cannula 3.00 09/21/17 14:54 99.1 99 18 139/86 (103) 96 09/21/17 14:37 19 09/21/17 14:00 96 09/21/17 13:00 96 09/21/17 12:00 98.3 92 28 143/83 (103) 95 09/21/17 12:00 92 09/21/17 10:00 86 09/21/17 09:00 97 I/O 09/21/17 09/21/17 09/21/17 09/22/17 09/22/17 09/22/17 07:00 15:00 23:00 07:00 15:00 23:00 Intake Total 200 ml 350 ml Output Total 2250 ml 900 ml Balance -2050 ml -550 ml Intake Oral 200 ml 350 ml Output Urine Total 2250 ml 900 ml # Voids 4 # Bowel Movements 0 1 Result Diagram: 09/21/17 1151 09/21/17 0655 Imaging Last Impressions Chest X-Ray 09/20/17 0000 Signed Impressions: Service Date/Time: Wednesday, September 20, 2017 19:21 - CONCLUSION: 1. No acute findings. Dannie Alston MD Abdomen/Pelvis CT 09/20/17 0000 Signed Impressions: Service Date/Time: Wednesday, September 20, 2017 21:01 - CONCLUSION: 1. No acute findings within the abdomen and pelvis. 2. Mild ground glass opacity right lung base could represent a mild infection. Underlying emphysema. Dannie Alston MD Head CT 09/16/17 0000 Signed Impressions: Service Date/Time: September 20:16 - CONCLUSION: No acute disease. Teo Lopez MD CT Angiography 09/16/17 0000 Signed Impressions: Service Date/Time: September 11:06 - CONCLUSION: 1. No evidence for pulmonary artery embolism to the proximal subsegmental level. 2. Postsurgical features of left upper lobectomy with extensive right apical bullous emphysema and diffuse bilateral centrilobular emphysema. 3. Patchy airspace disease in the superior segment of the left lower lobe which may be post treatment change although developing pneumonia or less likely aspiration cannot be excluded. 4. 8mm right lower lobe subpleural and 9 mm right upper lobe platelike nodules. Consider followup examination in approximately 3-6 months per 2017 Fleischner criteria. Maxim Schreiber MD Objective Remarks GENERAL:in no acute distress but with some sob. CARDIOVASCULAR: Regular rate and regular rhythm without murmurs, gallops, or rubs. RESPIRATORY: Clear to auscultation. Breath sounds equal bilaterally. No wheezes , rales, or rhonchi. GASTROINTESTINAL: Abdomen soft, non-tender, nondistended. Normal, active bowel sounds MUSCULOSKELETAL: Extremities without clubbing, cyanosis, or edema. NEURO: Alert & Oriented x4 to person, place, time, situation. Moves all ext x4 Procedures bronchoscopy Medications and IVs Inpatient Medications Acetaminophen (Tylenol) 650 mg Q6H PRN PO FOR FEVER >101F; Start 09/16/17 at 09 :30 Acetylcysteine (Mucomyst 10% Neb) 2 ml Q8HR NEB NEB Last administered on 09/20 07:52; Start 09/16/17 at 16:00; Stop 09/20/17 at 15:59; Status DC Albuterol Sulfate (Albuterol Concentrated Neb) 2.5 mg GUIDE [employer]ER NEB Last administered on 09/18/17 09:29; Start 09/16/17 at 12:45; Stop 09/20/17 at 12: 44; Status DC Albuterol Sulfate (Albuterol Neb) 2.5 mg Q4HR NEB PRN INH SHORTNESS OF BREATH; Start 09/16/17 at 09:30; Stop 09/16/17 at 11:15; Status DC Albuterol/ Ipratropium (Duoneb Neb) 1 ampule TID NEB INH Last administered on 09/22/17 07:37; Start 09/18/17 at 14:00 Azithromycin 500 mg/Sodium Chloride 250 ml @ 250 mls/hr Q24H IV Last administered on 09/21/17 14:13; Start 09/16/17 at 14:00 Chlorhexidine Gluconate (Chlorhexidine 2% Cloth) 3 pack UNSCH PRN TOP HYGIENIC CARE; Start 09/16/17 at 09:30 Chlorhexidine Gluconate (Peridex 0.12% Liq) 15 ml BID@08,20 MT Last administered on 09/20/17 19:45; Start 09/16/17 at 20:00 Dexmedetomidine HCl 1000 mcg/ Sodium Chloride 250 ml @ 3.05 mls/hr TITRATE PRN IV SEDATION Last administered on 09/18/17 22:12; Start 09/18/17 at 09:30; Stop 09/19/17 at 09:41; Status DC Dexmedetomidine HCl 200 mcg/ Sodium Chloride 52 ml @ 3.17 mls/hr TITRATE PRN IV SEDATION; Start 09/18/17 at 08:45; Stop 09/18/17 at 09:22; Status DC Dextrose (D50w (Vial) Inj) 50 ml UNSCH PRN IV PUSH HYPOGLYCEMIA - SEE COMMENTS ; Start 09/16/17 at 11:00 Dextrose/Sodium Chloride 1,000 ml @ 75 mls/hr [id number] IV Last administered on 09/18/17 05:36; Start 09/17/17 at 09:00; Stop 09/18/17 at 08:44; Status DC Diltiazem HCl (Cardizem) 60 mg Q6HR PO Last administered on 09/22/17 05:11; Start 09/20/17 at 13:00 Enoxaparin Sodium (Lovenox Inj) 40 mg Q24H SQ Last administered on 09/21/17 11:19; Start 09/16/17 at 11:00 Famotidine (Pepcid) 20 mg BID TUBE Last administered on 09/21/17 21:09; Start 09/16/17 at 21:00 Fentanyl Citrate 250 ml @ 5 mls/hr TITRATE PRN IV SEDATION Last administered on 09/19/17 02:30; Start 09/16/17 at 19:15; Stop 09/19/17 at 09:41; Status DC Fentanyl Citrate (fentaNYL INJ) 100 mcg ONCE ONCE IV PUSH ; Start 09/16/17 at 11:45; Stop 09/16/17 at 12:24; Status DC Glucagon (Glucagon Inj) 1 mg UNSCH PRN OTHER HYPOGLYCEMIA-SEE COMMENTS; Start 09/16/17 at 11:00 Haloperidol Lactate (Haldol Inj) 2 mg NOW ONCE IV PUSH Last administered on 12:58; Start 09/18/17 at 12:45; Stop 09/18/17 at 12:46; Status DC Hydralazine HCl (Apresoline Inj) 10 mg NOW ONCE IV PUSH Last administered on 09/18/17 15:15; Start 09/18/17 at 15:15; Stop 09/18/17 at 15:16; Status DC Hydralazine HCl (Apresoline) 50 mg Q8HR PO Last administered on 09/22/17 05: 11; Start 09/18/17 at 14:00 Insulin Aspart (NovoLOG SUPPLEMENTAL SCALE) 1 Q6HR SQ Last administered on 09/18 00:09; Start 09/16/17 at 12:00 Labetalol HCl (Trandate Inj) 10 mg Q4H PRN IV PUSH SBP greater than 160mm Hg Last administered on 09/20/17 19:44; Start 09/16/17 at 11:45 Linezolid 300 ml @ 300 mls/hr Q12H IV Last administered on 09/20/17 08:05; Start 09/16/17 at 21:00; Stop 09/20/17 at 10:54; Status DC Magnesium Oxide (Mag-Ox) 800 mg UNSCH PRN PO For Magnesium 1.2 - 1.6 mg/dL; Start 09/17/17 at 08:30; Stop 09/21/17 at 15:16; Status DC Magnesium Sulfate 2 gm/Sodium Chloride 100 ml @ 50 mls/hr UNSCH PRN IV For Magnesium 1.2 - 1.6 mg/dL; Start 09/17/17 at 08:30; Stop 09/21/17 at 15:16; Status DC Magnesium Sulfate 4 gm/Sodium Chloride 100 ml @ 50 mls/hr UNSCH PRN IV For Magnesium 0.9 - 1.1 mg/dL; Start 09/17/17 at 08:30; Stop 09/21/17 at 15:16; Status DC Methylprednisolone Sodium Succinate (SoluMEDROL INJ) 40 mg Q12HR IV PUSH Last administered on 09/21/17 08:22; Start 09/20/17 at 09:00; Stop 09/21/17 at 18 :11; Status DC Metoprolol Tartrate (Lopressor) 50 mg Q12HR PO Last administered on 09/21/17 21:09; Start 09/18/17 at 21:00 Midazolam HCl 100 ml @ 2 mls/hr TITRATE PRN IV SEDATION; Start 09/17/17 at 11: 15; Stop 09/20/17 at 07:41; Status DC Miscellaneous Information 1 [id number] Last administered on 09/16/17 09:30; Start 09/16/17 at 09:30 Morphine Sulfate (Morphine Inj) 2 mg Q3H PRN IV PAIN > 5 Last administered on 09/22/17 01:26; Start 09/19/17 at 23:30 Oxycodone HCl (OxyCONTIN CR) 10 mg Q12HR PO ; Start 09/19/17 at 09:00; Stop at 09:00; Status DC Oxycodone HCl (Roxicodone) 5 mg Q6H PRN PO pain 1-10 Last administered on 09/22 06:12; Start 09/19/17 at 08:45 Piperacillin Sod/ Tazobactam Sod 100 ml @ 200 mls/hr Q6H IV Last administered on 09/20/17 05:36; Start 09/16/17 at 13:00; Stop 09/20/17 at 10:54; Status DC Potassium Phosphate (K-Phos) 2,000 mg UNSCH PRN PO/TUBE SEE LABEL COMMENTS; Start 09/17/17 at 08:30; Stop 09/21/17 at 15:16; Status DC Potassium Phosphate 30 mmol/ Sodium Chloride 260 ml @ 42 mls/hr UNSCH PRN IV SEE LABEL COMMENTS; Start 09/17/17 at 08:30; Stop 09/21/17 at 15:16; Status DC Potassium Bicarb/ Potassium Chloride (K-Lyte Cl Eff) 50 meq UNSCH PRN PO For Potassium 3.3 - 3.5 mEq/L Last administered on 09/21/17 08:35; Start 09/17/17 at 08:30; Stop 09/21/17 at 15:16; Status DC Potassium Chloride 100 ml @ 50 mls/hr Q2H PRN IV For Potassium 3.3 - 3.5 mEq/L ; Start 09/17/17 at 08:30; Stop 09/21/17 at 15:16; Status DC Prednisone (Deltasone) 20 mg BID PO Last administered on 09/21/17 21:09; Start 09/21/17 at 21:00 Propofol 100 ml @ 2.1 mls/hr TITRATE PRN IV SEDATION Last administered on 09/18 14:26; Start 09/16/17 at 09:30; Stop 09/19/17 at 09:41; Status DC Senna/Docusate Sodium (Karen-Colace) 1 tab BID PRN PO constipation; Start 09/20 at 13:00 Sodium Chloride (NS Flush) 2 ml BID IV FLUSH Last administered on 09/21/17 21 :16; Start 09/16/17 at 21:00 Sodium Phosphate 30 mmol/Sodium Chloride 250 ml @ 42 mls/hr UNSCH PRN IV For Phosphorus < 2.5 mg/dL Last administered on 09/18/17 09:52; Start 09/17/17 at 08:30; Stop 09/21/17 at 15:16; Status DC Trimethoprim/ Sulfamethoxazole (Bactrim Ds 800-160 Mg) 1 tab Q12HR PO Last administered on 09/21/17 21:09; Start 09/20/17 at 11:00 Vancomycin HCl 1000 mg/Sodium Chloride 250 ml @ 250 mls/hr ONCE ONCE IV Last administered on 09/16/17 09:45; Start 09/16/17 at 06:15; Stop 09/16/17 at 07:14 ; Status DC A/P Assessment and Plan A/P Encephalopathy possibly secondary to narcotics/Flexeril- Resolved Acute and chronic respiratory failure with history of advanced COPD with COPD exacerbation and probable pneumonia- Extubated 09/19 s/p bronchoscopy. keep on oxygen to keep O2 sat > 90% ( patient is oxygen-dependent). continue neb treatment and steroids. continue Zithromax- ID and pulmonary following. Recent nocardia pneumonia; continue bactrim for another two months- per ID Chronic pain- will cautiously adjust the pain regimen. History of hypertension; continue cardizem- BPH; resume Flomax DVT prophylaxis with sub qLovenox continue PT. Bunny Brewer MD Sep 22, 2017 08:25
[2017-09-22] MEDS: predniSONE 20 MG TAB PO SCH (08:47)
[2017-09-22] MEDS: FAMOTIDINE 20 MG TAB TUBE SCH ×2 (08:47→20:17)
[2017-09-22] MEDS: METOPROLOL TARTRATE 25 MG TAB PO SCH ×2 (08:47→20:17)
[2017-09-22] MEDS: SULFAMETHOXAZOLE-TRIMETHOPRIM DS 800-160 MG TAB PO SCH ×2 (08:47→20:17)
[2017-09-22] MEDS: SODIUM CHLORIDE 0.9% FLUSH 10 ML FLUSH IV FLUSH SCH ×2 (09:00→20:17)
[2017-09-22] MEDS: ALPRAZolam 0.5 MG TAB PO PRN ×2 (09:44→18:28)
[2017-09-22 11:01] LABS: AUTOMATED NEUTROPHIL # 24.1 TH/MM3 (1.8-7.7); BASOPHIL # 0.1 TH/MM3 (0-0.2); BASOPHIL % 0.4 % (0.0-2.0); EOSINOPHIL % 0.2 % (0.0-4.0); HEMATOCRIT 41.5 % (39.0-51.0); LYMPH % 3.8 % (9.0-44.0); LYMPHOCYTE # 1.1 TH/MM3 (1.0-4.8); MEAN CELL VOLUME 85.1 FL (80.0-100.0); MEAN CORPUSCULAR HEMOGLOBIN 27.3 PG (27.0-34.0); MEAN CORPUSCULAR HGB CONC 32.1 % (32.0-36.0); MONO % 8.9 % (0.0-8.0); NEUT % 86.7 % (16.0-70.0); PLATELET COUNT 352 TH/MM3 (150-450); RED BLOOD COUNT 4.87 MIL/MM3 (4.50-5.90); RED CELL DISTRIBUTION WIDTH 18.5 % (11.6-17.2); WHITE BLOOD COUNT 27.9 TH/MM3 (4.0-11.0)
[2017-09-22 11:04] LABS: HEMO FLAGS AUTO DIFF
--- NOTE | 2017-09-22 11:28 | HHI.IDPN ---
Note Infectious Disease Note Patient is on O2 via nasal canula. Denies SOB. Notes no [place] sputum production. Afebrile. WBC elevated. Presented to the emergency department with shortness of breath and was intubated. Bronch culture has no growth. Mucous plugging noted upon bronchoscopy. PAST MEDICAL HISTORY 1. COPD. 2. Aspergillus pneumonia. 3. Nocardia pneumonia. 4. Benign prostatic hypertrophy. 5. Left lower lobectomy. ALLERGIES NO KNOWN DRUG ALLERGIES. ANTIBIOTICS 1. Azithromycin. 2. Bactrim PO. OBJECTIVE: Vital Signs Date Time Temp Pulse Resp B/P (MAP) Pulse Ox O2 Delivery O2 Flow Rate FiO2 09/22/17 08:00 98.2 100 18 137/93 (108) 98 09/22/17 07:38 98 Nasal Cannula 2.00 09/22/17 05:07 98.2 91 18 162/98 (119) 96 09/22/17 04:00 98.5 92 18 158/90 (112) 98 09/22/17 00:00 98.5 85 18 167/93 (117) 99 09/21/17 21:19 97 Nasal Cannula 3.00 09/21/17 20:00 97.9 101 18 175/95 (121) 99 09/21/17 20:00 107 09/21/17 18:52 17 09/21/17 15:51 19 09/21/17 15:07 96 Nasal Cannula 3.00 09/21/17 14:54 99.1 99 18 139/86 (103) 96 09/21/17 14:37 19 09/21/17 14:00 96 09/21/17 13:00 96 09/21/17 12:00 98.3 92 28 143/83 (103) 95 09/21/17 12:00 92 Laboratory Tests Test 09/21/17 06:55 09/21/17 11:51 09/22/17 10:20 White Blood Count 21.5 TH/MM3 27.2 TH/MM3 27.9 TH/MM3 Red Blood Count 4.74 MIL/MM3 5.05 MIL/MM3 4.87 MIL/MM3 Hemoglobin 12.9 GM/DL 13.5 GM/DL 13.3 GM/DL Hematocrit 40.5 % 42.9 % 41.5 % Mean Corpuscular Volume 85.3 FL 85.0 FL 85.1 FL Mean Corpuscular Hemoglobin 27.3 PG 26.8 PG 27.3 PG Mean Corpuscular Hemoglobin Concent 32.0 % 31.5 % 32.1 % Red Cell Distribution Width 18.3 % 19.0 % 18.5 % Platelet Count 355 TH/MM3 382 TH/MM3 352 TH/MM3 Mean Platelet Volume 7.4 FL 7.4 FL 7.4 FL Neutrophils (%) (Auto) 84.6 % 92.1 % 86.7 % Lymphocytes (%) (Auto) 4.2 % 1.7 % 3.8 % Monocytes (%) (Auto) 10.9 % 5.9 % 8.9 % Eosinophils (%) (Auto) 0.1 % 0.0 % 0.2 % Basophils (%) (Auto) 0.2 % 0.3 % 0.4 % Neutrophils # (Auto) 18.2 TH/MM3 25.0 TH/MM3 24.1 TH/MM3 Lymphocytes # (Auto) 0.9 TH/MM3 0.5 TH/MM3 1.1 TH/MM3 Monocytes # (Auto) 2.3 TH/MM3 1.6 TH/MM3 2.5 TH/MM3 Eosinophils # (Auto) 0.0 TH/MM3 0.0 TH/MM3 0.0 TH/MM3 Basophils # (Auto) 0.0 TH/MM3 0.1 TH/MM3 0.1 TH/MM3 CBC Comment AUTO DIFF DIFF FINAL AUTO DIFF Differential Comment AUTO DIFF CONFIRMED Platelet Estimate NORMAL Platelet Morphology Comment NORMAL Ovalocytes 1+ Laboratory Tests Test 09/21/17 06:55 09/22/17 10:20 Blood Urea Nitrogen 9 MG/DL Creatinine 0.44 MG/DL Random Glucose 99 MG/DL Calcium Level 8.8 MG/DL Sodium Level 134 MEQ/L Potassium Level 3.9 MEQ/L Chloride Level 96 MEQ/L Carbon Dioxide Level 30.7 MEQ/L Anion Gap 7 MEQ/L Estimat Glomerular Filtration Rate 208 ML/MIN IMAGING: Chest X-Ray 09/17/17 0600 Signed Impressions: Service Date/Time: Sunday, September 17, 2017 05:04 - CONCLUSION: Stable appearance of the chest. Emigdio Lee MD Head CT 09/16/17 0000 Signed Impressions: Service Date/Time: September 20:16 - CONCLUSION: No acute disease. Teo Lopez MD CT Angiography 09/16/17 0000 Signed Impressions: Service Date/Time: September 11:06 - CONCLUSION: 1. No evidence for pulmonary artery embolism to the proximal subsegmental level. 2. Postsurgical features of left upper lobectomy with extensive right apical bullous emphysema and diffuse bilateral centrilobular emphysema. 3. Patchy airspace disease in the superior segment of the left lower lobe which may be post treatment change although developing pneumonia or less likely aspiration cannot be excluded. 4. 8mm right lower lobe subpleural and 9 mm right upper lobe platelike nodules. Consider followup examination in approximately 3-6 months per 2017 Fleischner criteria. Maxim Schreiber MD PHYSICAL EXAMINATION GENERAL: No acute distress. HEENT: EOMI, EFE. No icterus. NECK: No adenopathy or swelling. LUNGS: Clear breath sounds on the right. HEART: Regular, S1-S2. 2/6 systolic murmur. ABDOMEN: Bowel sounds present, soft, no tenderness appreciated. EXTREMITIES: No clubbing, cyanosis or edema. SKIN: No rash. NEURO: non focal. PSYCH: calm and cooperative. IMPRESSION 1. Acute respiratory failure. Mucous plugging. 2. Probable pneumonia. The patient has history of Nocardia pulmonary infection which is recently treated and has been continued to be managed with maintenance Bactrim. 3. COPD. 4. Leukocytosis probably secondary to steroids. RECOMMENDATIONS 1. Continue Azithromycin. 2. Monitor cultures. 3. Continue Bactrim Nocardia maintenance treatment with Bactrim DS 1 Tab PO BID. Patient follows with ID in [place]. Has to take 2 more months of Bactrim to complete 6 month planned maintenance. 4. Monitor WBC. Jesus Vu MD Sep 22, 2017 11:28
[2017-09-22 11:37] LABS: BICARBONATE 32.1 MEQ/L (21.0-32.0); POTASSIUM 3.6 MEQ/L (3.5-5.1)
[2017-09-22 11:41] LABS: OVALOCYTES 1+ (NORMAL)
[2017-09-22 11:42] LABS: SCAN/DIFF AUTO DIFF CONFIRMED
[2017-09-22] MEDS: ENOXAPARIN SODIUM 40 MG/0.4 ML SYRINGE SQ SCH (12:17)
[2017-09-22] MEDS: CARBIDOPA/LEVODOPA 25 MG/100 MG TAB PO SCH ×2 (12:59→21:28)
[2017-09-22] MEDS: AZITHROMYCIN INJ 500 MG in SODIUM CHLOR 0.9% 250 ML INJ 250 ML IV SCH (12:59)
[2017-09-22] MEDS: RESP: ALBUTEROL 2.5 MG/IPRATROPIUM 0.5 MG NEB (PRN) INH ×2 (15:16→22:56)
--- NOTE | 2017-09-22 17:28 | HHI.PR ---
Subjective Remarks Doing well and O2 is off. Has some cough but better.. No fever. CXR shows no infiltrate. Taking PO well. Objective Vital Signs Date Time Temp Pulse Resp B/P (MAP) Pulse Ox O2 Delivery O2 Flow Rate FiO2 09/22/17 15:16 94 Nasal Cannula 2.00 09/22/17 12:00 98.4 85 18 149/92 (111) 97 09/22/17 08:00 97 Nasal Cannula 3.00 09/22/17 08:00 98.2 100 18 137/93 (108) 98 09/22/17 07:38 98 Nasal Cannula 2.00 09/22/17 05:07 98.2 91 18 162/98 (119) 96 09/22/17 04:00 98.5 92 18 158/90 (112) 98 09/22/17 00:00 98.5 85 18 167/93 (117) 99 09/21/17 21:19 97 Nasal Cannula 3.00 09/21/17 20:00 97.9 101 18 175/95 (121) 99 09/21/17 20:00 107 09/21/17 18:52 17 I/O 09/21/17 09/21/17 09/21/17 09/22/17 09/22/17 09/22/17 07:00 15:00 23:00 07:00 15:00 23:00 Intake Total 200 ml 350 ml Output Total 2250 ml 900 ml Balance -2050 ml -550 ml Intake Oral 200 ml 350 ml Output Urine Total 2250 ml 900 ml # Voids 4 # Bowel Movements 0 1 Result Diagram: 09/22/17 1020 09/22/17 1020 Objective Remarks GENERAL: This thinly built, middle-aged white male who is alert and oriented HEENT: Head normocephalic. Pupils are reactive. Tongue moist. Nasal mucosa edematous. Throat is clear. NECK: No bruits or thyroid enlargement, no lymphadenopathy. CHEST: Decreased breath sounds over the periphery with Occ wheezes bilaterally. Scar of surgery over the left chest. CARDIOVASCULAR: Heart sounds are regular. S1-S2. No murmur. ABDOMEN: Soft, nontender. No organomegaly. Bowel sounds are active. EXTREMITIES: No edema with diminished reflexes. The patient is oriented. Assessment and Plan Assessment and Plan IMPRESSION 1. Acute respiratory failure. 2. 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 3. History of Aspergillus pneumonia and Nocardia. 4. Chronic liver disease. 5. Encephalopathy. Plan : 1. Cont Antibiotics per ID 2. nebs qid , duoneb. 3. Wean O2 to RA 4. IS q2h, bedside. 5. Up in room 6. PFT in am 8. Cont Prednisone 20 mg bid and taper Kary Richardson MD Sep 22, 2017 17:28
[2017-09-22] MEDS: predniSONE 10 MG TAB PO SCH (20:17)
[2017-09-22] MEDS ORDERED: TAMSULOSIN HCL 0.4 MG CAP PO SCH (21:00)
[2017-09-23] VITALS: BP 118/67; PULSE 92; PULSE 96; RESP 20; TEMP 98.2; O2SAT 94
[2017-09-23] MEDS: MORPHINE SULFATE 2 MG/ML INJ IV PUSH PRN ×4 (02:04→14:21)
[2017-09-23] MEDS: CHLORHEXIDINE GLUCONATE 2 % 1 PACK (2 CLOTHS) TOP SCH (03:40)
[2017-09-23 03:43] VITALS: PULSE 89
[2017-09-23 04:00] VITALS: BP 145/93; PULSE 100; RESP 18; TEMP 99.3; O2SAT 95
[2017-09-23] MEDS: CARBIDOPA/LEVODOPA 25 MG/100 MG TAB PO SCH (05:02)
[2017-09-23] MEDS: hydrALAZINE HCL 50 MG TAB PO SCH (05:02)
[2017-09-23] MEDS: DILTIAZEM HCL 60 MG TAB PO SCH ×2 (05:02→11:21)
[2017-09-23] MEDS: ALPRAZolam 0.5 MG TAB PO PRN ×2 (05:08→13:06)
[2017-09-23] MEDS: INSULIN ASPART SUPPLEMENTAL SCALE SQ SCH ×3 (06:00→12:00)
[2017-09-23 07:25] LABS: BASOPHIL # 0.1 TH/MM3 (0-0.2); BASOPHIL % 0.5 % (0.0-2.0); EOSINOPHIL # 0.1 TH/MM3 (0-0.4); EOSINOPHIL % 0.5 % (0.0-4.0); HEMATOCRIT 40.7 % (39.0-51.0); HEMO FLAGS DIFF FINAL; LYMPH % 5.8 % (9.0-44.0); MEAN CELL VOLUME 85.5 FL (80.0-100.0); MEAN CORPUSCULAR HEMOGLOBIN 26.4 PG (27.0-34.0); MEAN CORPUSCULAR HGB CONC 30.9 % (32.0-36.0); MONO % 9.8 % (0.0-8.0); NEUT % 83.4 % (16.0-70.0); PLATELET COUNT 325 TH/MM3 (150-450); RED BLOOD COUNT 4.76 MIL/MM3 (4.50-5.90)
[2017-09-23] MEDS: FAMOTIDINE 20 MG TAB TUBE SCH (08:12)
[2017-09-23] MEDS: predniSONE 10 MG TAB PO SCH (08:12)
[2017-09-23] MEDS: SODIUM CHLORIDE 0.9% FLUSH 10 ML FLUSH IV FLUSH SCH (08:12)
[2017-09-23] MEDS: METOPROLOL TARTRATE 25 MG TAB PO SCH (08:12)
[2017-09-23] MEDS: SULFAMETHOXAZOLE-TRIMETHOPRIM DS 800-160 MG TAB PO SCH (08:12)
[2017-09-23] MEDS: RESP: ALBUTEROL 2.5 MG/IPRATROPIUM 0.5 MG NEB (PRN) INH ×2 (08:17→12:27)
[2017-09-23 08:18] VITALS: O2SAT 98
[2017-09-23 08:34] VITALS: BP 174/100; PULSE 106; RESP 18; TEMP 97.4; O2SAT 97
[2017-09-23] MEDS ORDERED: LABETALOL HCL 100 MG TAB PO ONE (10:45)
--- NOTE | 2017-09-23 10:47 | HHI.PR ---
Subjective Remarks Pt upset about his pain med regimen. states that he takes more pain meds then what he being given here. Pt states he will leave the hospital today. Denies any CP/N/V. States SOB is much improved. Tells me that he takes 200mg po BID of labetalol and also is on cardizem at home. States he doesn't take metoprolol RN at bedside. I explained to pt the I will discuss the case w both Dr. Vu and Dr. Eugenio Salinas and follow up on their recommendations. Also Will have PT reassess pt prior to d/c Objective Vitals Vital Signs Date Time Temp Pulse Resp B/P (MAP) Pulse Ox O2 Delivery O2 Flow Rate FiO2 09/23/17 08:34 97.4 106 18 174/100 (124) 97 09/23/17 08:18 98 Nasal Cannula 2.00 09/23/17 04:00 99.3 100 18 145/93 (110) 95 09/23/17 03:43 89 09/23/17 00:00 92 09/23/17 00:00 98.2 96 20 118/67 (84) 94 09/22/17 22:59 97 Nasal Cannula 2.00 09/22/17 22:00 Nasal Cannula 2.00 09/22/17 20:00 98.2 122 18 179/96 (123) 98 09/22/17 20:00 94 09/22/17 17:00 18 09/22/17 16:00 97.9 103 18 152/91 (111) 96 09/22/17 15:16 94 Nasal Cannula 2.00 09/22/17 12:00 98.4 85 18 149/92 (111) 97 I/O 09/22/17 09/22/17 09/22/17 09/23/17 09/23/17 09/23/17 07:00 15:00 23:00 07:00 15:00 23:00 # Voids 4 # Bowel Movements 1 Result Diagram: 09/23/17 0522 09/22/17 1020 Imaging Last Impressions Chest X-Ray 09/20/17 0000 Signed Impressions: Service Date/Time: Wednesday, September 20, 2017 19:21 - CONCLUSION: 1. No acute findings. Dannie Alston MD Abdomen/Pelvis CT 09/20/17 0000 Signed Impressions: Service Date/Time: Wednesday, September 20, 2017 21:01 - CONCLUSION: 1. No acute findings within the abdomen and pelvis. 2. Mild ground glass opacity right lung base could represent a mild infection. Underlying emphysema. Dannie Alston MD Head CT 09/16/17 0000 Signed Impressions: Service Date/Time: September 20:16 - CONCLUSION: No acute disease. Teo Lopez MD CT Angiography 09/16/17 0000 Signed Impressions: Service Date/Time: September 11:06 - CONCLUSION: 1. No evidence for pulmonary artery embolism to the proximal subsegmental level. 2. Postsurgical features of left upper lobectomy with extensive right apical bullous emphysema and diffuse bilateral centrilobular emphysema. 3. Patchy airspace disease in the superior segment of the left lower lobe which may be post treatment change although developing pneumonia or less likely aspiration cannot be excluded. 4. 8mm right lower lobe subpleural and 9 mm right upper lobe platelike nodules. Consider followup examination in approximately 3-6 months per 2017 Fleischner criteria. Maxim Schreiber MD Objective Remarks GENERAL: sitting up on side of bed. CARDIOVASCULAR: Regular rate and regular rhythm without murmurs RESPIRATORY: Clear to auscultation. Breath sounds equal bilaterally. No wheezes this morning. GASTROINTESTINAL: Abdomen soft, non-tender, nondistended. Normal, active bowel sounds MUSCULOSKELETAL: Extremities without edema. NEURO: Alert & Oriented, Moves all ext x4 Procedures bronchoscopy A/P Assessment and Plan Encephalopathy possibly secondary to narcotics/Flexeril- Resolved Acute and chronic respiratory failure with history of advanced COPD with COPD exacerbation and probable pneumonia- Extubated 09/19 s/p bronchoscopy which showed mucous plugging. on azithro IV. will touch base w both pulm and ID regarding final recs. continue supplemental oxygen ( patient is oxygen-dependent at home on 2 L). continue neb treatment and s/p steroids. Recent nocardia pneumonia; continue bactrim for another two months- per ID Chronic pain- cautiously adjust the pain regimen. Pt tells me that he will go home and take his home regimen as that is what works for him. He is not happy w his current regimen History of hypertension; continue cardizem/resumed home dose of labetalol, pt received 50mg of metroprol this morning, spoke w pharmacy and i was told that pt could received a 100mg dose of labetalol now to reach the total dose of 200mg. Pt will be back on 200mg po BID (home dose regimen). d/c hydralazine. BPH; resume Flomax DVT prophylaxis with sub q Lovenox Discharge Planning i have reached out to both Dr. Vu and Dr. Dylan Vu recommends pt continue bactrim and not other abx. awaiting final recs from [facility] Re-consulted PT as pt states he has been moving around and per their prior recs pt needed rehab. Madai Aranda MD Sep 23, 2017 10:47
[2017-09-23] MEDS ORDERED: PRED10 PO ×2 (11:09→11:11)
[2017-09-23] MEDS: ENOXAPARIN SODIUM 40 MG/0.4 ML SYRINGE SQ SCH (11:13)
--- NOTE | 2017-09-23 11:24 | HHI.DS ---
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 He has followed up with pulmonary physician and had his tracheostomy decannulated 2 weeks ago and saw the infectious disease physician Dr. 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 He has been taking more than his usual dose of Flexeril and is also on chronic narcotics. Patient developed worsening delirium and confusion over the last 1 week which the patient's fianc attributes to taking excessive Flexeril. 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 Patient was brought in today with worsening mental status and shortness of breath. He has also been having some chills for the last 1 week off and on. He was noted be hypoxic on arrival in the ER with significant respiratory distress and was intubated emergently and placed on mechanical ventilation by ER physician. Critical care medicine was contacted and accepted patient for admission to the ICU. When I evaluated the patient in the ER he was sedated, orally intubated on mechanical ventilation. History was obtained by discussion with patient's fianc at the bedside. CBC/BMP: 09/23/17 0522 12/13/17 1020 Significant Findings Laboratory Tests Test 09/21/17 06:55 09/21/17 11:51 09/22/17 10:20 09/23/17 05:22 White Blood Count 21.5 TH/MM3 (4.0-11.0) 27.2 TH/MM3 (4.0-11.0) 27.9 TH/MM3 (4.0-11.0) 18.0 TH/MM3 (4.0-11.0) Hemoglobin 12.9 GM/DL (13.0-17.0) 12.6 GM/DL (13.0-17.0) Red Cell Distribution Width 18.3 % (11.6-17.2) 19.0 % (11.6-17.2) 18.5 % (11.6-17.2) 19.0 % (11.6-17.2) Neutrophils (%) (Auto) 84.6 % (16.0-70.0) 92.1 % (16.0-70.0) 86.7 % (16.0-70.0) 83.4 % (16.0-70.0) Lymphocytes (%) (Auto) 4.2 % (9.0-44.0) 1.7 % (9.0-44.0) 3.8 % (9.0-44.0) 5.8 % (9.0-44.0) Monocytes (%) (Auto) 10.9 % (0.0-8.0) 8.9 % (0.0-8.0) 9.8 % (0.0-8.0) Neutrophils # (Auto) 18.2 TH/MM3 (1.8-7.7) 25.0 TH/MM3 (1.8-7.7) 24.1 TH/MM3 (1.8-7.7) 15.0 TH/MM3 (1.8-7.7) Lymphocytes # (Auto) 0.9 TH/MM3 (1.0-4.8) 0.5 TH/MM3 (1.0-4.8) Monocytes # (Auto) 2.3 TH/MM3 (0-0.9) 1.6 TH/MM3 (0-0.9) 2.5 TH/MM3 (0-0.9) 1.8 TH/MM3 (0-0.9) Ovalocytes 1+ (NORMAL) 1+ (NORMAL) Creatinine 0.44 MG/DL (0.60-1.30) Sodium Level 134 MEQ/L (136-145) 133 MEQ/L (136-145) Chloride Level 96 MEQ/L (98-107) 96 MEQ/L (98-107) Mean Corpuscular Hemoglobin 26.8 PG (27.0-34.0) 26.4 PG (27.0-34.0) Mean Corpuscular Hemoglobin Concent 31.5 % (32.0-36.0) 30.9 % (32.0-36.0) Random Glucose 109 MG/DL (74-106) Carbon Dioxide Level 32.1 MEQ/L (21.0-32.0) PE at Discharge GENERAL: sitting up on side of bed. CARDIOVASCULAR: Regular rate and regular rhythm without murmurs RESPIRATORY: Clear to auscultation. Breath sounds equal bilaterally. No wheezes this morning. GASTROINTESTINAL: Abdomen soft, non-tender, nondistended. Normal, active bowel sounds MUSCULOSKELETAL: Extremities without edema. NEURO: Alert & Oriented, Moves all ext x4 Hospital Course Pt w recent dx of nocardia pneumonia and on Bactrim twice a day for prevention. Per HPI pt had been taking more than his usual dose of Flexeril and is also on chronic narcotics. Patient developed worsening delirium and confusion over the last 1 week which the patient's fianc attributed to taking excessive Flexeril. Pt was admitted for worsening mental status and shortness of breath and chills for the last 1 week off and on. He was noted to be hypoxic on arrival in the ER with significant respiratory distress and was intubated emergently and placed on mechanical ventilation by ER physician. Critical care medicine admitted the patient. Pt was extubated and transferred to the hospitalist service. Pt is s/p bronchoscopy which showed mucous plug. Both ID and pulm evaluated the patient and have cleared the pt for discharged. Pt currently on steroid taper, which will need to be continued as an outpatient. Pt finished course of azithromycin. Pt will need to continue his bactrim as recommended by his ID physician. PT evaluated the pt today and pt didn't require any outpatient PT. Pt has been cautioned on the used of narcotics and muscle relaxers Pt Condition on Discharge: Stable Discharge Disposition: Discharge Home Discharge Time: > 30 minutes Discharge Instructions Speech Therapy-Diet Recommends: Pureed, [place] Thickened Liquids Follow up Referrals: Infectious Disease - 2 Weeks PCP Follow-up - 1 Week Pulmonology - 2 Weeks with Kary Richardson MD New Medications: Prednisone (Prednisone) 10 Mg Tab 10 MG PO BID, #7 TAB 1 tab po BID x 1 day then 1 tab po daily x 3 days 1/2 tab po daily x 4 days then stop Continued Medications: Acetylcysteine Liq/Neb (Acetylcysteine Liq/Neb) 100 mg/ml Soln 2 ML NEB QID for Breathing Treatment, NEBULE 0 Refills Albuterol 18 GM Inh (Ventolin Hfa 18 GM Inh) 90 Mcg/Act Aer 2 PUFF INH Q4-6H PRN for SHORTNESS OF BREATH, #1 INHALER 0 Refills Albuterol Neb (Albuterol Neb) 2.5 Mg/0.5 Ml Neb 2.5 MG NEB Q6HR NEB, BOX Note: The Albuterol Sulfate Inhalation Solution is concentrated and must be diluted. Read complete instructions carefully before using. Alprazolam (Xanax) 1 Mg Tab 1 MG PO Q12HR PRN for ANXIETY, TAB 0 Refills Carbidopa-Levodopa (Carbidopa-Levodopa) 25-100 Mg Tab 1 TAB PO Q8HR for Parkinson Disease Mgmt, #90 TAB 0 Refills Diltiazem (Diltiazem) 60 Mg Tab 60 MG PO QID for Angina, #120 TAB 0 Refills Fluticasone-Salmeterol 12 GM Inh (Advair Hfa 12 GM Inh) 230-21 Mcg/Act Aer 2 PUFF INH BID, #1 INHALER 0 Refills Gabapentin (Gabapentin) 300 Mg Cap 300 MG PO BID, #60 CAP 0 Refills Hydrocodone-Acetaminophen (Hydrocodone-Acetaminophen) 7.5 Mg-325 Mg Tab 1 TAB PO Q4H PRN for PAIN, TAB 0 Refills Ipratropium Neb (Ipratropium Neb) 0.5 Mg/2.5 Ml Amp 0.5 MG NEB Q6HR NEB for Breathing Treatment, NEBULE 0 Refills Labetalol (Labetalol) 200 Mg Tab 200 MG PO BID for Blood Pressure Management, TAB 0 Refills Oxycodone ER (Oxycontin) 30 Mg Tab 30 MG PO Q12HR for Pain Management, TAB 0 Refills Rifaximin (Xifaxan) 550 Mg Tab 550 MG PO Q12HR for Hepatic encephalopathy, #60 TAB 0 Refills Silodosin (Rapaflo) 8 Mg Cap 8 MG PO DAILY for Manage Prostate Problems, #30 CAP 0 Refills Sulfamethoxazole-Trimethoprim (Bactrim) 400-80 Mg Tab 1 TAB PO BID for Infection, TAB 0 Refills Tamsulosin (Tamsulosin) 0.4 Mg Cap 0.4 MG PO HS for Manage Prostate Problems, #30 CAP 0 Refills Umeclidinium [place] Inh (Incruse Ellipta Inh) 0.0625 Mg/Act Inh 62.5 MCG INH DAILY for Treat COPD, #1 INHALER 0 Refills Discontinued Medications: Cyclobenzaprine (Flexeril) 10 Mg Tab 10 MG PO BID for Muscle Spasm, #90 TAB 0 Refills Cyclobenzaprine (Flexeril) 10 Mg Tab 15 MG PO TID for Muscle Spasm, #90 TAB 0 Refills Madai Aranda MD Sep 23, 2017 11:24
[2017-09-23 12:43] VITALS: BP 164/84; PULSE 96; RESP 18; TEMP 98.1; O2SAT 95
[2017-09-23] MEDS ORDERED: hydrALAZINE HCL 25 MG TAB PO SCH (14:00)
[2017-09-23] MEDS ORDERED: LABETALOL HCL 200 MG TAB PO SCH (21:00)
== END 2017-09-23 14:49 | disposition home or self-care (01) | DRG 208 ==
LOC: NEPC 05:59 → NEDA 07:54 → HIME 11:20 → N05A 09-21 14:41
PROVIDERS: ADMIT Hospitalist; ATTEND Hospitalist
PROC: 5A1945Z Respiratory Ventilation, 24-96 Consecutive Hours (ICD-10-PCS; principal; 2017-09-16)
PROC: 0BCB8ZZ Extirpation of Matter from Left Lower Lobe Bronchus, Via Natural or Artificial Opening Endoscopic (ICD-10-PCS; 2017-09-17)
PROC: 0BC48ZZ Extirpation of Matter from Right Upper Lobe Bronchus, Via Natural or Artificial Opening Endoscopic (ICD-10-PCS; 2017-09-17)
PROC: 0BC88ZZ Extirpation of Matter from Left Upper Lobe Bronchus, Via Natural or Artificial Opening Endoscopic (ICD-10-PCS; 2017-09-17)
PROC: 0BC58ZZ Extirpation of Matter from Right Middle Lobe Bronchus, Via Natural or Artificial Opening Endoscopic (ICD-10-PCS; 2017-09-17)
PROC: 0BC38ZZ Extirpation of Matter from Right Main Bronchus, Via Natural or Artificial Opening Endoscopic (ICD-10-PCS; 2017-09-17)
PROC: 0BC78ZZ Extirpation of Matter from Left Main Bronchus, Via Natural or Artificial Opening Endoscopic (ICD-10-PCS; 2017-09-17)
PROC: 0BC68ZZ Extirpation of Matter from Right Lower Lobe Bronchus, Via Natural or Artificial Opening Endoscopic (ICD-10-PCS; 2017-09-17)
PROC: 0BDB8ZX Extraction of Left Lower Lobe Bronchus, Via Natural or Artificial Opening Endoscopic, Diagnostic (ICD-10-PCS; 2017-09-17)
PROC: 0BDG8ZX Extraction of Left Upper Lung Lobe, Via Natural or Artificial Opening Endoscopic, Diagnostic (ICD-10-PCS; 2017-09-17)
PROC: 0BD78ZX Extraction of Left Main Bronchus, Via Natural or Artificial Opening Endoscopic, Diagnostic (ICD-10-PCS; 2017-09-17)
PROC: 0BDF8ZX Extraction of Right Lower Lung Lobe, Via Natural or Artificial Opening Endoscopic, Diagnostic (ICD-10-PCS; 2017-09-17)
DX: J18.9 Pneumonia, unspecified organism (principal); J96.21 Acute and chronic respiratory failure with hypoxia; G93.40 Encephalopathy, unspecified; J44.0 Chronic obstructive pulmonary disease with (acute) lower respiratory infection; F11.20 Opioid dependence, uncomplicated; J44.1 Chronic obstructive pulmonary disease with (acute) exacerbation; Z99.81 Dependence on supplemental oxygen; Z72.0 Tobacco use; I10 Essential (primary) hypertension; N40.0 Benign prostatic hyperplasia without lower urinary tract symptoms; G89.29 Other chronic pain; K59.03 Drug induced constipation; T40.2X5A Adverse effect of other opioids, initial encounter; Y92.009 Unspecified place in unspecified non-institutional (private) residence as the place of occurrence of the external cause; K76.9 Liver disease, unspecified; T17.990A Other foreign object in respiratory tract, part unspecified in causing asphyxiation, initial encounter
CPT/HCPCS: 31624; 36600; 51702; 70450; 71010; 71275; 74176; 80048; 80053; 80076; 80307; 81001; 82550; 82805; 82948; 83690; 83735; 84100; 84484; 85025; 85610; 85730; 87015; 87040; 87070; 87086; 87102; 87116; 87205; 87206; 87449; 87641; 87804; 88112; 88305; 88312; 93005; 94002; 94003; 94150; 94640; 94664; 96365; 96368; J0360; J0456; J1630; J1650; J1815; J2020; J2270; J2543; J2920; J3010; J3370; J7042; J7050; J7512; J7608; J7611; Q9967